=== PATIENT | female | born 1940 | race Caucasian/White ===

== ENCOUNTER → 2020-04-09 15:37 | Outpatient (BNVA) | payer MEDICARE, OTHER, SELFPAY | PROVIDERS: Family Provider Internal Medicine; PCP Internal Medicine; Visit Provider Internal Medicine | DX: E11.9 Type 2 diabetes mellitus without complications (principal); B19.20 Unspecified viral hepatitis C without hepatic coma; E05.00 Thyrotoxicosis with diffuse goiter without thyrotoxic crisis or storm; K90.9 Intestinal malabsorption, unspecified; I48.0 Paroxysmal atrial fibrillation; E83.10 Disorder of iron metabolism, unspecified | CPT/HCPCS: 82105; 82607; 82746; 83550; 84443; 85025 ==

== ENCOUNTER 2020-04-14 09:08 | Outpatient (RCR) | payer MEDICARE, OTHER, SELFPAY ==
[2020-04-14] MEDS: ferric carboxy (IVPB) 750 MG in sodium chloride 0.9% (100 ml) 100 ML 345 MG IV (09:49)
[2020-04-14 09:52] VITALS: BP 128/69; PULSE 64; RESP 18; TEMP 36.4; O2SAT 100
[2020-04-21 09:44] VITALS: BP 111/77; PULSE 64; RESP 18; TEMP 36.6; O2SAT 99
[2020-04-21] MEDS: ferric carboxy (IVPB) 750 MG in sodium chloride 0.9% (100 ml) 100 ML 345 MG IV (09:59)
== END 2020-05-12 23:59 | disposition home or self-care (01) ==
LOC: OPS 09:08
PROVIDERS: Family Provider Internal Medicine; PCP Internal Medicine; Visit Provider Internal Medicine
DX: D50.9 Iron deficiency anemia, unspecified (principal)
CPT/HCPCS: 96365; J1439

== ENCOUNTER → 2020-10-09 16:17 | Outpatient (BNVA) | payer MEDICARE, OTHER, SELFPAY | PROVIDERS: Family Provider Internal Medicine; PCP Internal Medicine; Visit Provider Internal Medicine | DX: R94.6 Abnormal results of thyroid function studies (principal); K90.9 Intestinal malabsorption, unspecified; I48.0 Paroxysmal atrial fibrillation; E05.00 Thyrotoxicosis with diffuse goiter without thyrotoxic crisis or storm | CPT/HCPCS: 80053; 83550; 84439; 84443; 84481; 85025 ==

== ENCOUNTER → 2020-12-02 10:52 | Day surgery (SDC) | payer MEDICARE, OTHER, SELFPAY ==
[2020-12-02 11:34] VITALS: BP 144/62; PULSE 82; RESP 20; TEMP 36.1; O2SAT 100
[2020-12-02] MEDS: ferric carboxy (IVPB) 750 MG in sodium chloride 0.9% (100 ml) 100 ML 220 MG IV (11:35)
== END ==
PROVIDERS: PCP Internal Medicine; Visit Provider Internal Medicine
DX: D50.9 Iron deficiency anemia, unspecified (principal)
CPT/HCPCS: 96365; J1439

== ENCOUNTER → 2020-12-09 10:51 | Day surgery (SDC) | payer MEDICARE, OTHER, SELFPAY ==
[2020-12-09 11:12] VITALS: BP 127/68; PULSE 71; RESP 18; TEMP 37; O2SAT 100; BMI 25.6
[2020-12-09] MEDS: ferric carboxy (IVPB) 750 MG in sodium chloride 0.9% (100 ml) 100 ML 345 MG IV (11:23)
== END ==
PROVIDERS: PCP Internal Medicine; Visit Provider Internal Medicine
DX: D50.9 Iron deficiency anemia, unspecified (principal)
CPT/HCPCS: 96365; J1439

== ENCOUNTER → 2021-04-08 15:25 | Outpatient (BNVA) | payer MEDICARE, OTHER, SELFPAY | PROVIDERS: PCP Internal Medicine; Visit Provider Internal Medicine | DX: I48.0 Paroxysmal atrial fibrillation (principal); E05.00 Thyrotoxicosis with diffuse goiter without thyrotoxic crisis or storm; K90.9 Intestinal malabsorption, unspecified | CPT/HCPCS: 83550 ==

== ENCOUNTER → 2021-05-12 10:59 | Day surgery (SDC) | payer MEDICARE, SELFPAY ==
[2021-05-12 11:20] VITALS: BP 141/68; PULSE 65; RESP 18; TEMP 36.5; O2SAT 98; BMI 24.3
[2021-05-12] MEDS: ferric carboxy (IVPB) 750 MG in sodium chloride 0.9% (100 ml) 100 ML 345 MG IV (11:32)
== END ==
PROVIDERS: PCP Internal Medicine; Visit Provider Internal Medicine
DX: K90.9 Intestinal malabsorption, unspecified (principal)
CPT/HCPCS: 96365; J1439

== ENCOUNTER 2021-06-02 10:59 | Outpatient (RCR) | payer MEDICARE, OTHER, SELFPAY ==
[2021-05-19 11:33] VITALS: BP 137/62; PULSE 67; RESP 18; TEMP 36.7; O2SAT 100
[2021-05-19 11:43] VITALS: BMI 24.1
[2021-05-19] MEDS: ferric carboxy (IVPB) 750 MG in sodium chloride 0.9% (100 ml) 100 ML 345 MG IV (12:00)
[2021-05-26 11:12] VITALS: BP 102/39; PULSE 66; RESP 18; TEMP 36.6; O2SAT 98
[2021-05-26] MEDS: ferric carboxy (IVPB) 750 MG in sodium chloride 0.9% (100 ml) 100 ML 345 MG IV (11:22)
[2021-06-02 11:10] VITALS: BP 130/71; PULSE 62; RESP 18; TEMP 35.9; O2SAT 99
[2021-06-02] MEDS: ferric carboxy (IVPB) 750 MG in sodium chloride 0.9% (100 ml) 100 ML 345 MG IV (11:20)
== END 2021-06-11 23:59 | disposition home or self-care (01) ==
LOC: GILAB 10:59
PROVIDERS: PCP Internal Medicine; Visit Provider Internal Medicine
DX: K90.9 Intestinal malabsorption, unspecified (principal)
CPT/HCPCS: 96365; J1439

== ENCOUNTER → 2021-06-09 10:12 | Outpatient (BNVA) | payer MEDICARE, OTHER, SELFPAY | PROVIDERS: PCP Internal Medicine; Visit Provider Internal Medicine | DX: K90.9 Intestinal malabsorption, unspecified (principal) | CPT/HCPCS: 83550 ==

== ENCOUNTER 2021-07-03 14:33 | Inpatient (IN) | payer MEDICARE, OTHER, SELFPAY ==
[2021-07-03] VITALS (10 sets, daily range): BP systolic 102–161; BP diastolic 62–110; PULSE 82–100; RESP 15–20; TEMP 36.6–36.7; O2SAT 90–100; BMI 21.4; BMI 22.1
--- NOTE | 2021-07-03 14:54 | XRR_ITS ---
PROCEDURE INFORMATION: Exam: XR Right Hip Exam date and time: 07/03/2021 2:54 PM Age: 80 years old Clinical indication: Pain and injury or trauma; Fall; Blunt trauma (contusions or hematomas); Hip pain; Right hip; Additional info: Fall with hip pain TECHNIQUE: Imaging protocol: XR Right hip. Views: 1 view hip with pelvis when performed. COMPARISON: No relevant prior studies available. FINDINGS: Bones/joints: Right hip basicervical fracture with impaction and angulation. Soft tissues: Unremarkable. XR/XR hip RT 2-3V wo/w pel* [id number] IMPRESSION: Right hip basicervical fracture with impaction and angulation. Radiation Dose CTDIVOL = (mGy): DLP = (mGy-cm)
--- NOTE | 2021-07-03 14:59 | W.ED.FALL ---
Documented by User: BEATRIZ Prather 07/03/21 17:00 HPI - Fall General: Chief Complaint: Fall Stated Complaint: POSSIBLE R HIP FX Time Seen by Provider: 07/03/21 14:54 History of Present Illness: HPI Narrative: Patient is a 80-year-old female that comes to the ED via ambulance after having a fall. She is reporting some right hip pain. Fall occurred last night. Patient says she was walking in her house and tripped over a rug. She landed on her right side. After fall she was having right hip pain and was unable to bear weight on right leg so she decided to come to the ED to get evaluated. She rates her pain currently a 9 out of 10. Denies any head trauma, loss of consciousness or any neck pain. Denies any neurological symptoms as well. Associated symptoms-after fall: Denies abdominal pain, chest pain, headache(s), hematuria or neck pain Review of Systems Const: Denies: fever(s), chills or fatigue Eyes: Denies: change in vision or eye discomfort ENMT: Denies: throat pain, odynophagia, nasal discharge or nasal congestion Card: Denies: chest pain, palpitations, edema, swelling of feet/ankles, dyspnea on exertion or orthopnea Resp: Denies: dyspnea, productive cough or non-productive cough GI: Denies: abdominal pain, nausea, vomiting, diarrhea, constipation or hematochezia : Denies: flank pain, dysuria or hematuria Musc: Reports: joint pain (Right hip) and limited range of motion (Right leg due to her right hip pain.); Denies: neck pain, back pain or extremity swelling Skin/Breast: Denies: rash or new lesions Neuro: Denies: headache(s), numbness in extremities or weakness in extremities PFS ED PFSH: Medical History Graves' disease Iron malabsorption Paroxysmal A-fib Surgical History H/O kyphoplasty History of tonsillectomy Family History Mother Cancer Sister Cancer Other Heart disease Social History Alcohol intake: current Adopted: No service: No History of recent travel: No Current gender identity: Female Physical Exam Const: COMMON NORMALS: patient oriented x3, healthy appearing and alert GENERAL APPEARANCE: cooperative and comfortable HENMT: COMMON NORMALS: normocephalic HEAD & SCALP: normocephalic MOUTH: Normal oral and palatal mucosa present THROAT: posterior oropharynx normal and uvula midline Eye: COMMON NORMALS: Equal, round and reactive pupils present and EOMs intact bilaterally PUPIL: Yes Equal, round and reactive pupils present Neck/C-Spine: COMMON NORMALS: supple GENERAL: Yes normal visual inspection Resp: COMMON NORMALS: normal respiratory effort, No retractions, No use of accessory muscles and clear to auscultation bilaterally AUSCULTATION: clear to auscultation bilaterally Cardio: COMMON NORMALS: regular rate, regular rhythm, S1 normal heart sound present, S2 normal heart sound present, No gallops present (Cardio), No clicks present (Cardio), No murmurs present (Cardio) and Peripheral pulses 2+ throughout RATE: regular rate RHYTHM: regular rhythm HEART SOUNDS: S1 normal heart sound present and S2 normal heart sound present PERIPHERAL PULSES: Peripheral pulses 2+ throughout GI: COMMON NORMALS: Normal to inspection, nondistended, normoactive bowel sounds present, Soft to palpation, non-tender and no masses PALPATION: Yes Soft to palpation : COMMON NORMALS: Yes no CVA tenderness BLADDER/KIDNEY EXAM: Yes no CVA tenderness Back/Pelvis: COMMON NORMALS: no CVA tenderness Extremity: COMMON NORMALS: normal to inspection NARRATIVE EXTREMITY EXAM: Right lower extremity?shortened and externally rotated. Neurovascular intact. unable to obtain assess range of motion due to right hip pain Neuro: COMMON NORMALS: patient oriented x3, CN's II-XII intact bilaterally, moves all extremities, no focal motor deficits and no sensory deficits noted SENSORIUM/ORIENTATION: Yes alert SENSORY EXAM: Yes extremities (intact light touch) MOTOR EXAM: 5/5 motor strength present throughout (all other extremities normal-unable to test right leg due to pain) Skin: GENERAL SKIN EXAM: dry skin Course Consultations: Consultation #1: I contacted Dr. Guzman the e business specialist supervisor contingents. I told about patient case and x-ray of right hip findings. He told me to have patient admitted to hospital service. Since she is on a blood thinner he thought he would probably do a surgery on Tuesday. Vital Signs: Vital signs: Vital Signs Temperature 98.0 F 07/06/21 20:04 Pulse Rate 91 07/06/21 20:04 Respiratory Rate 16 07/06/21 20:04 Blood Pressure 165/74 07/06/21 20:04 Pulse Oximetry 95 07/06/21 20:04 MDM - Fall MDM Narrative: Medical decision making narrative: A 80-year-old female comes to the ED via EMS with right hip pain after having a fall at home. Denies any head trauma or loss of consciousness. Patient is on apixaban for paroxysmal A. fib. Vitals are stable. Exam shows right lower extremity that appears shortened and externally rotated. Neurovascular intact distally. The rest of the exam and neurological exam is normal. X-ray of right hip shows a basicervical hip fracture with impaction and angulation. Ct head pending. I contacted Dr. Guzman to discuss findings. He recommended having patient admitted to the hospital service and she will need to stop her apixaban. He thought that they would probably do surgery on Tuesday. I talked with Dr. Alcocer and told him about patient case and Dr. Guzman's plan to have patient admitted to hospital service. Dr. Alcocer talked with hospitalist and placed admitting orders. Lab Data: Labs: Lab Results 07/03/21 07/03/21 07/03/21 14:40 14:40 14:40 WBC 11.1 10^3/uL H 10 ^3/uL (4.0-10.0) RBC 3.42 10^6/uL L 10 ^6/uL (4.1-5.3) Hgb 11.0 g/dL L g/dL (11.5-15.3) Hct 34.7 % L % (37.0-47.0) MCV 101.5 fl H fl (81-99) MCH 32.2 pg pg (28.0-34.0) MCHC 31.7 g/dL g/dL (30.0-36.0) RDW 20.8 % H % (12.1-15.1) Plt Count 269 10^3/cmm 10^3 /cmm (130-400) MPV 9.9 fL fL (7.4-10.4) Neut % (Auto) 84.9 % % Lymph % (Auto) 6.5 % % [place] % (Auto) 7.7 % % Eos % (Auto) 0.0 % % Baso % (Auto) 0.2 % % Neut # (Auto) 9.44 10^3/uL H 10 ^3/uL (1.8-7.7) Lymph # (Auto) 0.7 10^3/uL L 10^ 3/uL (0.8-4.8) [place] # (Auto) 0.9 10^3/uL 10^3/ uL (0.2-0.9) Eos # (Auto) 0.0 10^3/uL 10^3/ uL (0.0-0.8) Baso # (Auto) 0.0 10^3/uL 10^3/ uL (0.0-0.1) Nucleated RBC % (a uto) 0 % % Nucleated RBCs # 0.0 /100WBC /100W BC Sodium 139 mmol/L mmol/L (136-145) Potassium 3.6 mmol/L mmol/L (3.5-5.1) Chloride 100 mmol/L mmol/L (98-107) Carbon Dioxide 21 mmol/L L mmol/ L (22-29) Anion Gap 21.6 H (5-19) BUN 13 mg/dL mg/dL (8-23) Creatinine 0.6 mg/dL mg/dL (0.5-0.9) GFR Calculation Not Reportable Glucose 166 mg/dL H mg/dL (65-115) Calculated Osmolal ity 292 mOsm/kg mOsm/ kg (285-295) Calcium 8.7 mg/dL mg/dL (8.5-10.5) Creatine Kinase 629 U/L H* U/L (26-192) Troponin T Baselin e NT-Pro-B Natriuret Pep 744 pg/mL H pg/mL (0-450) Vitamin B12 Folate 07/03/21 07/03/21 07/03/21 14:40 14:40 14:40 WBC RBC Hgb Hct MCV MCH MCHC RDW Plt Count MPV Neut % (Auto) Lymph % (Auto) [place] % (Auto) Eos % (Auto) Baso % (Auto) Neut # (Auto) Lymph # (Auto) [place] # (Auto) Eos # (Auto) Baso # (Auto) Nucleated RBC % (a uto) Nucleated RBCs # Sodium Potassium Chloride Carbon Dioxide Anion Gap BUN Creatinine GFR Calculation Glucose Calculated Osmolal ity Calcium Creatine Kinase Troponin T Baselin e 30 ng/L H ng/L (0-10) NT-Pro-B Natriuret Pep Vitamin B12 195 pg/mL L pg/mL (232-1245) Folate 11.6 ng/mL ng/mL (4.8-37.3) Imaging Data^: Xray Ortho: Attestation: I personally reviewed and interpreted this imaging study as follows: Radiologist's impression: [employer] [address] XRay Report Signed Patient: Anu Rivera Unit #: [id number] : 1940 Age/Sex: 80 / F ADM Date: 07/03/21 Loc: ER Room/Bed: Attending Dr: Ordering Provider/Ordering MD: Jose Yates Date of Service: 07/03/21 Procedure(s): XR hip RT 2-3V wo/w pel* [id number] Accession Number(s): [id number] Report Number: [id number] PROCEDURE INFORMATION: Exam: XR Right Hip Exam date and time: 07/03/2021 2:54 PM Age: 80 years old Clinical indication: Pain and injury or trauma; Fall; Blunt trauma (contusions or hematomas); Hip pain; Right hip; Additional info: Fall with hip pain TECHNIQUE: Imaging protocol: XR Right hip. Views: 1 view hip with pelvis when performed. COMPARISON: No relevant prior studies available. FINDINGS: Bones/joints: Right hip basicervical fracture with impaction and angulation. Soft tissues: Unremarkable. XR/XR hip RT 2-3V wo/w pel* [id number] IMPRESSION: Right hip basicervical fracture with impaction and angulation. Radiation Dose CTDIVOL = (mGy): DLP = (mGy-cm) Dictated By: Gagandeep Nguyen MD Signed By: Gagandeep Nguyen MD Signed Date/Time: 07/03/21 1543 DD/ 1454 Discharge Plan Discharge Patient Disposition: Admitted As Inpatient Admit Provider: Robbin Walls Clinical Impression: Hip fracture, right Qualifiers: Encounter type: initial encounter Fracture type: closed Qualified Code(s): S72.001A - Fracture of unspecified part of neck of right femur, initial encounter for closed fracture Condition: Stable Coding Level of Care Code ED Button Cutting Machine Operator for Chg Fwd Exam Comprehensive Documented by User: Boyd Alcocer MD 07/06/21 21:28 HPI - Fall General: Chief Complaint: Fall Stated Complaint: POSSIBLE R HIP FX Time Seen by Provider: 07/03/21 14:54 PFSH ED PFSH: Medical History Graves' disease Iron malabsorption Paroxysmal A-fib Surgical History H/O kyphoplasty History of tonsillectomy Family History Mother Cancer Sister Cancer Other Heart disease Social History Alcohol intake: current Adopted: No service: No History of recent travel: No Current gender identity: Female Course Vital Signs: Vital signs: Vital Signs Temperature 98.0 F 07/06/21 20:04 Pulse Rate 91 07/06/21 20:04 Respiratory Rate 16 07/06/21 20:04 Blood Pressure 165/74 07/06/21 20:04 Pulse Oximetry 95 07/06/21 20:04 MDM - Fall MDM Narrative: Medical decision making narrative: I discussed the case with BEATRIZ Prather. Note, imaging, and labs reviewed. Will require admission for hip fracture on anticoagulation. Hospitalist contacted. Boyd Alcocer MD Emergency Medicine Lab Data: Labs: Lab Results 07/03/21 07/03/21 07/03/21 14:40 14:40 14:40 WBC 11.1 10^3/uL H 10 ^3/uL (4.0-10.0) RBC 3.42 10^6/uL L 10 ^6/uL (4.1-5.3) Hgb 11.0 g/dL L g/dL (11.5-15.3) Hct 34.7 % L % (37.0-47.0) MCV 101.5 fl H fl (81-99) MCH 32.2 pg pg (28.0-34.0) MCHC 31.7 g/dL g/dL (30.0-36.0) RDW 20.8 % H % (12.1-15.1) Plt Count 269 10^3/cmm 10^3 /cmm (130-400) MPV 9.9 fL fL (7.4-10.4) Neut % (Auto) 84.9 % % Lymph % (Auto) 6.5 % % [place] % (Auto) 7.7 % % Eos % (Auto) 0.0 % % Baso % (Auto) 0.2 % % Neut # (Auto) 9.44 10^3/uL H 10 ^3/uL (1.8-7.7) Lymph # (Auto) 0.7 10^3/uL L 10^ 3/uL (0.8-4.8) [place] # (Auto) 0.9 10^3/uL 10^3/ uL (0.2-0.9) Eos # (Auto) 0.0 10^3/uL 10^3/ uL (0.0-0.8) Baso # (Auto) 0.0 10^3/uL 10^3/ uL (0.0-0.1) Nucleated RBC % (a uto) 0 % % Nucleated RBCs # 0.0 /100WBC /100W BC Sodium 139 mmol/L mmol/L (136-145) Potassium 3.6 mmol/L mmol/L (3.5-5.1) Chloride 100 mmol/L mmol/L (98-107) Carbon Dioxide 21 mmol/L L mmol/ L (22-29) Anion Gap 21.6 H (5-19) BUN 13 mg/dL mg/dL (8-23) Creatinine 0.6 mg/dL mg/dL (0.5-0.9) GFR Calculation Not Reportable Glucose 166 mg/dL H mg/dL (65-115) Calculated Osmolal ity 292 mOsm/kg mOsm/ kg (285-295) Calcium 8.7 mg/dL mg/dL (8.5-10.5) Creatine Kinase 629 U/L H* U/L (26-192) Troponin T Baselin e NT-Pro-B Natriuret Pep 744 pg/mL H pg/mL (0-450) Vitamin B12 Folate 07/03/21 07/03/21 07/03/21 14:40 14:40 14:40 WBC RBC Hgb Hct MCV MCH MCHC RDW Plt Count MPV Neut % (Auto) Lymph % (Auto) [place] % (Auto) Eos % (Auto) Baso % (Auto) Neut # (Auto) Lymph # (Auto) [place] # (Auto) Eos # (Auto) Baso # (Auto) Nucleated RBC % (a uto) Nucleated RBCs # Sodium Potassium Chloride Carbon Dioxide Anion Gap BUN Creatinine GFR Calculation Glucose Calculated Osmolal ity Calcium Creatine Kinase Troponin T Baselin e 30 ng/L H ng/L (0-10) NT-Pro-B Natriuret Pep Vitamin B12 195 pg/mL L pg/mL (232-1245) Folate 11.6 ng/mL ng/mL (4.8-37.3) Discharge Plan Discharge Patient Disposition: Admitted As Inpatient Admit Provider: Robbin Walls Clinical Impression: Hip fracture, right Qualifiers: Encounter type: initial encounter Fracture type: closed Qualified Code(s): S72.001A - Fracture of unspecified part of neck of right femur, initial encounter for closed fracture Condition: Stable Coding Level of Care Code ED Button Cutting Machine Operator for Alice Fwd Exam Comprehensive
[2021-07-03] MEDS: ondansetron 2 mg/ML SDV 2 mL 4 MG IVP (15:35)
[2021-07-03] MEDS: morphine 4 mg/mL SDV 1 mL IVP ×2 (15:36→17:17)
--- NOTE | 2021-07-03 16:38 | CTR_ITS ---
PROCEDURE INFORMATION: Exam: CT Head Without Contrast Exam date and time: 07/03/2021 4:38 PM Age: 80 years old Clinical indication: Injury or trauma; Fall; Blunt trauma (contusions or hematomas); Consciousness not specified; Patient HX: Fell last night TECHNIQUE: Imaging protocol: Computed tomography of the head without contrast. Radiation optimization: All CT scans at this facility use at least one of these dose optimization techniques: automated exposure control; mA and/or kV adjustment per patient size (includes targeted exams where dose is matched to clinical indication); or iterative reconstruction. COMPARISON: No relevant prior studies available. RADIATION DOSE METRICS: Total DLP (mGy-cm): 1689.32 FINDINGS: Brain: Moderate diffuse cortical volume loss. Moderate hypodensities in supratentorial periventricular and subcortical white matter, consistent with microangiopathy. No intracranial hemorrhage. Cerebral ventricles: Cavum septum pellucidum, a congenital variant. No hydrocephalus. Paranasal sinuses: Visualized sinuses are unremarkable. No fluid levels. Mastoid air cells: Visualized mastoid air cells are well aerated. Orbital cavity: Prior cataract surgery. Vasculature: No hyperdense artery. Bones/joints: Unremarkable. No acute fracture. Soft tissues: Unremarkable. CT/CT head wo con* [id number] IMPRESSION: 1. No acute intracranial abnormality. Radiation Dose CTDIVOL = (mGy): DLP = 1689.32 (mGy-cm)
--- NOTE | 2021-07-03 16:49 | CTR_ITS ---
PROCEDURE INFORMATION: Exam: CT Cervical Spine Without Contrast Exam date and time: 07/03/2021 4:49 PM Age: 80 years old Clinical indication: Injury or trauma; Fall; Blunt trauma; Patient HX: Fell last night TECHNIQUE: Imaging protocol: Computed tomography images of the cervical spine without contrast. Radiation optimization: All CT scans at this facility use at least one of these dose optimization techniques: automated exposure control; mA and/or kV adjustment per patient size (includes targeted exams where dose is matched to clinical indication); or iterative reconstruction. COMPARISON: CT head wo con* [id number] 07/03/2021 4:54 PM RADIATION DOSE METRICS: Total DLP (mGy-cm): 345.76 FINDINGS: Bones/joints: The vertebral body alignment and stature is intact. No fracture or subluxation. The facets are intact with mild degenerative changes. Mild leftward cervical curvature. Discs/Spinal canal/Neural foramina: No significant disc protrusion. No severe spinal canal stenosis. No significant neural foraminal narrowing. Thyroid: Multiple thyroid nodules, the largest on the left measuring 1.4 cm. No ultrasound follow-up is recommended based on size and age criteria. Lungs: Lung apices are normal. Soft tissues: Unremarkable. CT/CT cervical spin wo con* [id number] IMPRESSION: 1. No fracture or acute finding. COMMENTS: Consistent with the [employer]'s Incidental Findings Committee white paper (J Am Rafal Radiol 2015): In patients aged 35 years and older with an incidental thyroid nodule equal to or greater than 1.[address], MRI or extrathyroidal US, further evaluation with dedicated thyroid US is recommended for patients with normal life expectancy and without comorbidities. For smaller nodules without suspicious features, no further evaluation or follow up is recommended. Radiation Dose CTDIVOL = (mGy): DLP = 345.76 (mGy-cm)
[2021-07-03 17:22] LABS: Anion Gap 21.6 (5-19); Blood Urea Nitrogen 13 mg/dL (8-23); Calcium 8.7 mg/dL (8.5-10.5); Carbon Dioxide 21 mmol/L (22-29); Chloride 100 mmol/L (98-107); Glucose 166 mg/dL (65-115); Osmolality Calculated 292 mOsm/kg (285-295); Potassium 3.6 mmol/L (3.5-5.1); Sodium 139 mmol/L (136-145)
--- NOTE | 2021-07-03 17:28 | P.HP_ITS ---
Providers/Chief Complaint Primary Care Provider: Amrit Ivey MD Chief Complaint: POSSIBLE R HIP FX History of Present Illness Anu Rivera is a 80 year old female with a past medical history of paroxysmal atrial fibrillation, Graves' disease on methimazole, who presents to [facility] for a fall. Patient tells me that yesterday at about 8 PM, she slipped on the rug, and fell on her right side, denies any head trauma, denies any loss of consciousness, denies any preceding palpitations, lightheadedness, syncope, presyncope, shortness of breath, she tells me that she laid on the floor for a some time, she is unsure, she crawled on the floor, until her came in put her into bed. This morning she got up and had right hip pain, and was unable to bear weight or stand, that she presented to the emergency room. Denies any Covid exposure, no fevers, cough, has had Covid vaccinations. In the emergency room she was found to have a right hip fracture, on Eliquis, ER physician has spoken to orthopedic team who advised to admit, hold blood thinner, plan for surgical intervention in the next 24 to 48 hours hospitalist team was called for admission. Review of Systems Const: Denies: fever(s), chills, fatigue or malaise Eyes: Denies: change in vision or blurry vision ENMT: Denies: nasal congestion Card: Denies: chest pain or palpitations Resp: Denies: dyspnea, productive cough, non-productive cough or wheezing GI: Denies: abdominal pain, nausea, vomiting, hematemesis, diarrhea, constipation, hematochezia or melena : Denies: flank pain, dysuria or urinary frequency Musc: Reports: extremity pain and joint pain; Denies: neck pain or back pain Skin/Breast: Denies: rash Neuro: Denies: headache(s), dizziness or vertigo Endo: Denies: polyuria or polydipsia Medications/Allergies Home Medications Medication Instructions Recorded Confirmed Last Taken Type methimazole 5 mg tablet 2.5 mg PO DAILY tab 04/09/20 06/09/21 05/26/21 History ferric carboxymaltose 750 mg IVP Q7D #15 ml 04/10/20 06/09/21 05/26/21 Rx acetaminophen 500 mg tablet 1,000 mg PO BID PRN tab 05/12/20 07/03/21 12/01/20 History apixaban 5 mg tablet 5 mg PO BID #60 tab 12/01/20 07/03/21 07/02/21 Rx metoprolol succinate 25 mg capsule 25 mg PO DAILY #30 each 02/18/21 06/09/21 05/26/21 Rx sprinkle, ext. release 24 hr vitamins A,C,U-izle-ltqebm 14,320 1 cap PO BID 05/12/21 06/09/21 05/26/21 History unit-226 mg-200 unit capsule Allergies Allergy/AdvReac Type Severity Reaction Status Date / Time No Known Allergies Allergy Verified 05/26/21 11:10 PFSH Acute PFSH: Medical History Graves' disease Iron malabsorption Paroxysmal A-fib Surgical History H/O kyphoplasty History of tonsillectomy Family History Mother Cancer Sister Cancer Other Heart disease Social History Alcohol intake: current Adopted: No service: No History of recent travel: No Current gender identity: Female Vitals/I&O/Wt Last Vital Signs Temp 97.9 F 07/03/21 14:42 Pulse 90 07/03/21 17:00 Resp 20 H 07/03/21 17:17 BP 149/90 07/03/21 17:00 Pulse Ox 100 07/03/21 17:17 Weight last 48 hrs Weight 56.699 kg Physical Exam Const: COMMON NORMALS: no acute distress and patient oriented x3 GENERAL APPEARANCE: cooperative and comfortable HENMT: COMMON NORMALS: normocephalic HEAD & SCALP: normocephalic Eye: COMMON NORMALS: Equal, round and reactive pupils present and EOMs intact bilaterally GENERAL EYE: appearance normal, both eyes and all related structures PUPIL: Yes Equal, round and reactive pupils present Neck/C-Spine: COMMON NORMALS: full ROM and no lymphadenopathy Lymph: LYMPHATIC: no lymphadenopathy noted Resp: COMMON NORMALS: normal respiratory effort, No retractions, No use of accessory muscles and clear to auscultation bilaterally AUSCULTATION: clear to auscultation bilaterally Cardio: COMMON NORMALS: no JVD, regular rate, regular rhythm, S1 normal heart sound present, S2 normal heart sound present, No gallops present (Cardio), No clicks present (Cardio) and No murmurs present (Cardio) RATE: regular rate RHYTHM: regular rhythm HEART SOUNDS: S1 normal heart sound present and S2 normal heart sound present GI: COMMON NORMALS: Normal to inspection, nondistended, normoactive bowel sounds present, Soft to palpation, non-tender and No hepatosplenomegaly present PALPATION: Yes Soft to palpation and Yes No hepatosplenomegaly present Extremity: COMMON NORMALS: normal to inspection, full ROM and no pedal edema NARRATIVE EXTREMITY EXAM: Right lower extremity, slightly externally rotated, and in a binder Neuro: COMMON NORMALS: patient oriented x3, CN's II-XII intact bilaterally, moves all extremities and no focal motor deficits Psych: COMMON NORMALS: mental status grossly normal, Normal thought process present and cooperative THOUGHT PROCESS: Normal thought process present Data : 07/03/21 14:40 A&P Assessment and plan (1) Hip fracture, right: -Status post mechanical fall -Right hip basicervical fracture with impaction and angulation. -CT of the head, CT cervical spine pending -We will do EKG, serial troponins, BMP -UA pending -Pain control Dilaudid -Bedrest, after surgery PT OT -Orthopedic service on consult -DNR/DNI -Heparin for DVT prophylaxis Paroxysmal A. fib, telemetry monitoring, Eliquis on hold, continue metoprolol Graves' disease, continue methimazole, check TSH Fall, prolonged immobility, CPK monitor creatinine, gentle IV hydration Status: Acute Qualifiers: Encounter type: initial encounter Fracture type: closed Qualified Code(s): S72.001A - Fracture of unspecified part of neck of right femur, initial encounter for closed fracture (2) Paroxysmal A-fib: Status: Acute (3) Graves' disease: Status: Acute (4) Iron malabsorption: Status: Acute Attestations Medical Necessity Statement*: Patient requires hospitalization, for hip fracture, inpatient, greater than 2 midnights Coding Level of Care Code Acute Topper Press Operator Automatic for [facility] Diagnoses Hip fracture, right S72.001A Encounter type: initial encounter Fracture type: closed Paroxysmal A-fib I48.0 Graves' disease E05.00 Iron malabsorption K90.9
[2021-07-03 17:42] LABS: Basophils % 0.2 %; Hematocrit 34.7 % (37.0-47.0); Lymphocytes # 0.7 10^3/uL (0.8-4.8); Lymphocytes % 6.5 %; Mean Corpuscular HGB Conc 31.7 g/dL (30.0-36.0); Mean Corpuscular Hemoglobin 32.2 pg (28.0-34.0); Mean Corpuscular Volume 101.5 fl (81-99); Mean Platelet Volume 9.9 fL (7.4-10.4); Monocytes # 0.9 10^3/uL (0.2-0.9); Monocytes % 7.7 %; Neutrophils # 9.44 10^3/uL (1.8-7.7); Neutrophils % 84.9 %; Nucleated Red Blood Cells % 0 %; Platelet Count 269 10^3/cmm (130-400); Red Blood Count 3.42 10^6/uL (4.1-5.3); Red Cell Distribution Width 20.8 % (12.1-15.1); White Blood Count 11.1 10^3/uL (4.0-10.0)
[2021-07-03 17:50] LABS: Urine Appearance Hazy (CLEAR); Urine Color Yellow (Yellow)
[2021-07-03 17:51] LABS: Add Urine Culture? No; Add Urine Microscopic? YES; Bacteria Urine TRACE /hpf; Bilirubin Urine Neg (Negative); Blood Urine Neg (Negative); Glucose Urine UA 1+ (Normal); Ketones Urine 2+ (Negative); Leukocyte Esterase Urine Negative (Negative); Mucus Urine TRACE /hpf; Nitrate Urine Negative (Negative); Protein Urine Neg (Negative); RBC Urine 0-4 /hpf (0-2); Specific Gravity, Urine 1.025 (1.005-1.030); Squamous Epithelial Cell Urine 0-4 /hpf (0-5); Urobilinogen Urine Norm (Negative); WBC Urine 0-4 /hpf (0-5); pH Urine 5 (5-7)
[2021-07-03 18:01] LABS: NT Pro B Type Natriuretic Pept 744 pg/mL (0-450)
[2021-07-03 18:18] LABS: Creatine Phosphokinase 629 U/L (26-192)
--- NOTE | 2021-07-03 18:22 | PC.NURSE ---
Dr. Walls notified of critical CK 629 called to this nurse.
[2021-07-03 18:24] LABS: Troponin(5th) Baseline 30 ng/L (0-10)
--- NOTE | 2021-07-03 20:17 | ECG_ITS ---
[facility] Test Date: 2021-07-03 Pat Name: Anu Rivera Department: Room: 262 Gender: Female Lidar Technician: : 1940 Requested By: Robbin Walls Order Number: [id number] Bebeto MD: Gurjit Agrawal M.D. Measurements Intervals Elizabeth Rate: 83 P: 21 WY: 128 QRS: 29 QRSD: 78 T: 28 QT: 366 QTc: 432 Interpretive Statements SINUS RHYTHM Compared to ECG 12/09/2017 09:03:10 Atrial fibrillation no longer present T-wave abnormality no longer present Electronically Signed On 07-03-2021 22:47:28 CDT by Gurjit Agrawal M.D. [id number]
[2021-07-03] MEDS: HYDROmorphone 1 mg/mL INJ 1 mL IVP (20:26)
[2021-07-03] MEDS: famotidine 20 mg/2 mL INJ IVP (20:56)
[2021-07-03] MEDS: sodium chloride 0.9% 1,000 ML 75 ML IV (20:56)
[2021-07-03] MEDS: heparin 5,000 unit/mL INJ 1 mL 5000 UNIT SUBCUT (20:56)
--- NOTE | 2021-07-03 21:00 | PC.NURSE ---
Admit Note Patient admitted to [MS room 262-1] from [er] via [stretcher ]. Covering service notified. Patient presents with [right hip fx from glf ]. Orders reviewed & will continue to monitor. Patient and/or surgical device sales representative oriented to environment, equipment, and informed of the following as found in the admission booklet: patient rights & responsibilities, visitor policy, hand and respiratory hygiene practice. Other education includes: [safety and bedrest]. Patient and/or surgical device sales representative [verbalized understanding ].
[2021-07-03 21:45] LABS: Troponin 5 2HR 33.64 ng/L (0-10)
[2021-07-03 21:51] LABS: Thyroid Stimulating Hormone 2.02 uIU/mL (0.27-4.20)
--- NOTE | 2021-07-03 23:36 | ECG_ITS ---
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 Measurements Intervals [place] Rate: 87 P: 28 NC: 146 QRS: 26 QRSD: 77 T: 30 QT: 367 QTc: 443 Interpretive Statements SINUS RHYTHM Compared to ECG 07/03/2021 22:22:03 No significant changes Electronically Signed On 07-05-2021 18:38:18 CDT by Keila Queen M.D. [id number]
[2021-07-04] VITALS (12 sets, daily range): BP systolic 100–125; BP diastolic 55–72; PULSE 77–83; RESP 16–18; TEMP 36.5–37.3; O2SAT 93–97
[2021-07-04] MEDS: sodium chloride 0.9% 1,000 ML 75 ML IV ×2 (02:27→14:42)
[2021-07-04 06:46] LABS: Basophils % 0.2 %; Hematocrit 28.4 % (37.0-47.0); Hemoglobin 8.8 g/dL (11.5-15.3); Lymphocytes # 0.9 10^3/uL (0.8-4.8); Lymphocytes % 13.5 %; Mean Corpuscular Hemoglobin 31.7 pg (28.0-34.0); Mean Corpuscular Volume 102.2 fl (81-99); Mean Platelet Volume 9.7 fL (7.4-10.4); Monocytes # 0.7 10^3/uL (0.2-0.9); Monocytes % 10.7 %; Neutrophils # 4.93 10^3/uL (1.8-7.7); Neutrophils % 75.3 %; Nucleated Red Blood Cells % 0 %; Platelet Count 201 10^3/cmm (130-400); Red Blood Count 2.78 10^6/uL (4.1-5.3); Red Cell Distribution Width 20.3 % (12.1-15.1); White Blood Count 6.5 10^3/uL (4.0-10.0)
[2021-07-04 07:02] LABS: INR 1.17 (0.8-1.2)
[2021-07-04 07:17] LABS: Alanine Aminotransferase 11 U/L (0-33); Albumin Level 3.5 g/dL (3.5-5.2); Alkaline Phosphatase 100 IU/L (35-105); Anion Gap 12.8 (5-19); Aspartate Amino Transferase 15 U/L (0-32); Blood Urea Nitrogen 18 mg/dL (8-23); Calcium 8.1 mg/dL (8.5-10.5); Carbon Dioxide 25 mmol/L (22-29); Chloride 106 mmol/L (98-107); Globulin 1.9 g/dL (1.3-4.6); Glucose 102 mg/dL (65-115); Magnesium 1.8 mg/dL (1.7-2.3); Osmolality Calculated 292 mOsm/kg (285-295); Potassium 3.8 mmol/L (3.5-5.1); Sodium 140 mmol/L (136-145); Total Bilirubin 0.4 mg/dL (0.15-1.2); Total Protein 5.4 g/dL (6.6-8.7)
[2021-07-04] MEDS: famotidine 20 mg/2 mL INJ IVP ×2 (07:44→20:16)
[2021-07-04] MEDS: heparin 5,000 unit/mL INJ 1 mL 5000 UNIT SUBCUT ×2 (07:44→20:16)
[2021-07-04] MEDS: metoprolol succinate ER (24 HR) 25 mg Tablet PO (07:45)
[2021-07-04] MEDS: HYDROmorphone 1 mg/mL INJ 1 mL IVP ×3 (07:54→20:16)
[2021-07-04 10:00] LABS: Folate Level 11.6 ng/mL (4.8-37.3)
[2021-07-04 10:01] LABS: Vitamin B12 195 pg/mL (232-1245)
[2021-07-04] MEDS: methIMAzole 5 MG Tablet 2.5 MG PO (10:32)
[2021-07-04 11:04] LABS: LAB Peripheral Smear Sent for Review
--- NOTE | 2021-07-04 16:13 | P.PN_ITS ---
Subjective Subjective: Interval history: Patient was seen this morning, she tells me that her pain is well controlled, no fevers, chills, no nausea, no vomiting, no chest pain Vitals/I&O/Wt Last Vital Signs Temp 98.5 F 07/04/21 15:53 Pulse 79 07/04/21 15:53 Resp 16 07/04/21 15:53 BP 100/55 07/04/21 15:53 Pulse Ox 94 07/04/21 15:53 07/04/21 07/04/21 07/04/21 06:59 14:59 22:59 Intake Total 413.75 / 413.75 1480 / 1480 Output Total 300 / 300 Balance 113.75 / 113.75 1480 / 1480 Weight last 48 hrs Weight 58.627 kg Weight 56.699 kg Physical Exam Const: COMMON NORMALS: no acute distress and patient oriented x3 Resp: COMMON NORMALS: normal respiratory effort, No retractions, No use of accessory muscles and clear to auscultation bilaterally AUSCULTATION: clear to auscultation bilaterally Cardio: COMMON NORMALS: regular rate, regular rhythm, S1 normal heart sound present and S2 normal heart sound present RATE: regular rate RHYTHM: regular rhythm HEART SOUNDS: S1 normal heart sound present and S2 normal heart sound present GI: COMMON NORMALS: Normal to inspection, nondistended, normoactive bowel sounds present, Soft to palpation and non-tender PALPATION: Yes Soft to palpation Extremity: COMMON NORMALS: no pedal edema Neuro: COMMON NORMALS: patient oriented x3 Psych: COMMON NORMALS: mental status grossly normal Urinary Catheter Management^: Palacio: Cath Placed During This Visit: yes Urinary Catheter Date of Insertion: 07/03/21 Urinary Catheter Time of Insertion: 17:40 Data : 07/04/21 05:39 07/04/21 05:39 A&P Assessment and plan (1) Hip fracture, right: -Status post mechanical fall -Right hip basicervical fracture with impaction and angulation. -CT of the head no acute findings, CT cervical spine no acute findings -EKG no acute ST-T wave changes, serial troponins no clinically significant delta troponin -Pain control Dilaudid -Bedrest, after surgery PT OT -Orthopedic service on consult -DNR/DNI -Heparin for DVT prophylaxis Paroxysmal A. fib, telemetry monitoring, Eliquis on hold, continue metoprolol Graves' disease, continue methimazole Fall, prolonged immobility, Rhabdomyolysis, elevated CPK, gentle IV hydration Vitamin B12 deficiency, start vitamin B12 Status: Acute Qualifiers: Encounter type: initial encounter Fracture type: closed Qualified Code(s): S72.001A - Fracture of unspecified part of neck of right femur, initial encounter for closed fracture (2) Paroxysmal A-fib: Status: Acute (3) Graves' disease: Status: Acute (4) Iron malabsorption: Status: Acute (5) Rhabdomyolysis: Status: Acute Attestations Medical Necessity Statement*: Patient requires hospitalization for right hip fracture Coding Level of Care Code Acute Reservations Agent for [facility] Diagnoses Hip fracture, right S72.001A Encounter type: initial encounter Fracture type: closed Paroxysmal A-fib I48.0 Graves' disease E05.00 Iron malabsorption K90.9 Rhabdomyolysis M62.82
--- NOTE | 2021-07-04 17:10 | P.CONIM_ITS ---
Providers/Reason For Consult Consulting Physician/Specialty*: Anton Guzman MD; orthopedic surgery Reason for Consult*: Occult femoral neck fracture Attending Physician: Robbin Walls MD Primary Care Provider: Amrit Ivey MD History of Present Illness History of Present Illness Anu Rivera is a 80 year old female who fell at home with resulting pain in her right hip. She is seen in our emergency room radiographs revealed a basicervical right femoral neck fracture. She has a history of intermittent atrial fibrillation and is managed with apixaban. Her last dose was reportedly yesterday morning. She is admitted admitted to the medicine service for medical management with anticipated surgery tomorrow when she has adequate time for clearance for the apixaban. She previously was fully ambulatory at home. She lives with a brother. Meds/Allergies Home Medications and Allergies Home Medications Medication Instructions Recorded Confirmed Last Taken Type methimazole 5 mg tablet 2.5 mg PO DAILY tab 04/09/20 07/03/21 07/02/21 History acetaminophen 500 mg tablet 1,000 mg PO BID PRN tab 05/12/20 07/03/21 12/01/20 History apixaban 5 mg tablet 5 mg PO BID #60 tab 12/01/20 07/03/21 07/02/21 Rx vitamins A,C,T-mngw-vekkee 14,320 1 cap PO BID 05/12/21 07/03/21 07/02/21 History unit-226 mg-200 unit capsule metoprolol succinate 12.5 mg PO DAILY 07/03/21 07/03/21 07/02/21 History Allergies Allergy/AdvReac Type Severity Reaction Status Date / Time No Known Allergies Allergy Verified 05/26/21 11:10 Current Medications Current Medications Generic Name Dose Route Start Last Admin Trade Name Freq PRN Reason Stop Dose Admin Famotidine 20 mg 07/03/21 21:00 07/04/21 07:44 Famotidine 20 Mg/2 Ml Inj IVP 20 mg Q12H TRAVON Administration Heparin Sodium (Porcine) 5,000 unit 07/03/21 21:00 07/04/21 07:44 Heparin 5,000 Unit/Ml Inj 1 Ml SUBCUT 5,000 unit Q12H TRAVON Administration Hydromorphone HCl 1 mg 07/03/21 20:17 07/04/21 13:56 Hydromorphone 1 Mg/Ml Inj 1 Ml IVP 1 mg Q4H PRN Administration PAIN Sodium Chloride 1,000 mls @ 75 mls/hr 07/03/21 20:17 07/04/21 14:42 Sodium Chloride 0.9% IV 75 mls/hr .[id number] TRAVON Administration Methimazole 2.5 mg 07/04/21 09:00 07/04/21 10:32 Methimazole 5 Mg Tablet PO 2.5 mg DAILY TRAVON Administration Metoprolol Succinate 25 mg 07/04/21 09:00 07/04/21 07:45 Metoprolol Succinate Er (24 Hr) 25 Mg Tablet PO 25 mg DAILY TRAVON Administration PFSH Acute PFSH: Medical History Graves' disease Iron malabsorption Paroxysmal A-fib Surgical History H/O kyphoplasty History of tonsillectomy Family History Mother Cancer Sister Cancer Other Heart disease Social History Alcohol intake: current Adopted: No service: No History of recent travel: No Current gender identity: Female Vitals/I&O/Wt Last Vital Signs Temp 98.5 F 07/04/21 15:53 Pulse 79 07/04/21 15:53 Resp 16 07/04/21 15:53 BP 100/55 07/04/21 15:53 Pulse Ox 94 07/04/21 15:53 07/04/21 07/04/21 07/04/21 06:59 14:59 22:59 Intake Total 413.75 / 413.75 1480 / 1480 Output Total 300 / 300 Balance 113.75 / 113.75 1480 / 1480 Weight last 48 hrs Weight 129 lb 4 oz Weight 125 lb Physical Exam Narrative: EXAM NARRATIVE: The patient has shortening and external rotation of the right hip. There is not a great deal swelling about the right hip I can see. She has pain with any internal or external rotation of the right hip. She will flex and extend her right toes and ankle. She has a palpable Gr pedis pulse. Her sensation is intact to light touch. Urinary Catheter Management^: Palacio: Cath Placed During This Visit: yes Urinary Catheter Date of Insertion: 07/03/21 Urinary Catheter Time of Insertion: 17:40 Data Imaging^: Other Xray: My impression: Radiographs of the right hip are reviewed from our emergency room dated 07/03/2021. The patient has a displaced basicervical right femoral neck fracture. A&P Assessment and plan (1) Hip fracture, right: The patient seems to have a basicervical femoral neck fracture. I told her that this could reasonably treated with open reduction and internal fixation of my opinion. We will have a better idea when we get her out in traction in the operating room. I discussed risk of nonunion malunion. I discussed risk of avascular necrosis. I made aware the potential for hardware complications. Discussed the possible need for further procedures. She has family at home and we will try to see if we can get her amatory enough to be discharged home. She will need senior care. We will proceed tomorrow after she has had time to metabolize apixaban in her system. Status: Acute Qualifiers: Encounter type: initial encounter Fracture type: closed Qualified Code(s): S72.001A - Fracture of unspecified part of neck of right femur, initial encounter for closed fracture Coding Level of Care Code Acute Mechanical Intern for [facility] Diagnoses Hip fracture, right S72.001A Encounter type: initial encounter Fracture type: closed
[2021-07-04] MEDS: cyanocobalamin 1,000 mcg Tablet 1000 MCG PO (17:54)
[2021-07-05] VITALS (24 sets, daily range): BP systolic 115–165; BP diastolic 62–100; PULSE 70–105; RESP 14–25; TEMP 36.3–37.6; O2SAT 93–99
--- NOTE | 2021-07-05 | SCC_ITS ---
Procedure Done: Open reduction internal fixation right basicervical femoral neck fracture 70.8 seconds of fluoroscopic guidance, for a cumulative dose of 4.0 mGy, was provided to Dr. Guzman by the radiology department. C-arm images of the RIGHT hip were saved for the patient's permanent record. [facility]
--- NOTE | 2021-07-05 | XR_ITS ---
WS: [id number] C-ARM RADIOGRAPHS RIGHT HIP; 3 IMAGES HISTORY: [facility] COMPARISON: 07/03/2021 Intraoperative fixation using screws and plates stabilizing an intertrochanteric fracture which is no w in good position and alignment. XR/XR hip RT 1V wo/w pel [id number] IMPRESSION: Intraoperative ORIF intertrochanteric fracture in good alignment.
[2021-07-05] MEDS: HYDROmorphone 1 mg/mL INJ 1 mL IVP (04:55)
[2021-07-05 05:08] LABS: Basophils % 0.4 %; Eosinophils % 0.6 %; Hematocrit 27.2 % (37.0-47.0); Hemoglobin 8.2 g/dL (11.5-15.3); Lymphocytes % 19.2 %; Mean Corpuscular HGB Conc 30.1 g/dL (30.0-36.0); Mean Corpuscular Hemoglobin 30.9 pg (28.0-34.0); Mean Corpuscular Volume 102.6 fl (81-99); Mean Platelet Volume 9.3 fL (7.4-10.4); Monocytes # 0.4 10^3/uL (0.2-0.9); Monocytes % 7.8 %; Neutrophils # 3.75 10^3/uL (1.8-7.7); Neutrophils % 71.4 %; Nucleated Red Blood Cells % 0 %; Platelet Count 167 10^3/cmm (130-400); Red Blood Count 2.65 10^6/uL (4.1-5.3); Red Cell Distribution Width 19.9 % (12.1-15.1); White Blood Count 5.3 10^3/uL (4.0-10.0)
[2021-07-05 05:22] LABS: INR 1.03 (0.8-1.2)
[2021-07-05 05:32] LABS: Alanine Aminotransferase 13 U/L (0-33); Albumin Level 3.2 g/dL (3.5-5.2); Alkaline Phosphatase 95 IU/L (35-105); Anion Gap 11.6 (5-19); Aspartate Amino Transferase 18 U/L (0-32); Blood Urea Nitrogen 18 mg/dL (8-23); Carbon Dioxide 24 mmol/L (22-29); Chloride 107 mmol/L (98-107); Globulin 1.9 g/dL (1.3-4.6); Glucose 97 mg/dL (65-115); Magnesium 1.9 mg/dL (1.7-2.3); Osmolality Calculated 290 mOsm/kg (285-295); Potassium 3.6 mmol/L (3.5-5.1); Sodium 139 mmol/L (136-145); Total Bilirubin 0.3 mg/dL (0.15-1.2); Total Protein 5.1 g/dL (6.6-8.7)
[2021-07-05] MEDS: famotidine 20 mg/2 mL INJ IVP (08:05)
[2021-07-05] MEDS: metoprolol succinate ER (24 HR) 25 mg Tablet PO (08:06)
--- NOTE | 2021-07-05 13:10 | PM.PN ---
Subjective Subjective: Interval history: Patient was seen this morning, no fevers, chills, no chest pain, no palpitations, pain is well controlled, she is awaiting her surgery in the afternoon Vitals/I&O/Wt Last Vital Signs Temp 98.2 F 07/05/21 11:24 Pulse 80 07/05/21 11:24 Resp 14 07/05/21 11:24 BP 123/73 07/05/21 11:24 Pulse Ox 94 07/05/21 11:24 07/04/21 07/05/21 07/05/21 22:59 06:59 14:59 Intake Total 1000 / 2480 Output Total 150 / 150 1000 / 1150 Balance -150 / 1330 0 / 1330 Weight last 48 hrs Weight 58.627 kg Weight 56.699 kg Physical Exam Const: COMMON NORMALS: no acute distress and patient oriented x3 Resp: COMMON NORMALS: normal respiratory effort, No retractions, No use of accessory muscles and clear to auscultation bilaterally AUSCULTATION: clear to auscultation bilaterally Cardio: COMMON NORMALS: regular rate, regular rhythm, S1 normal heart sound present and S2 normal heart sound present RATE: regular rate RHYTHM: regular rhythm HEART SOUNDS: S1 normal heart sound present and S2 normal heart sound present GI: COMMON NORMALS: Normal to inspection, nondistended, normoactive bowel sounds present, Soft to palpation and non-tender PALPATION: Yes Soft to palpation Extremity: COMMON NORMALS: no pedal edema Neuro: COMMON NORMALS: patient oriented x3 Psych: COMMON NORMALS: mental status grossly normal Urinary Catheter Management^: Palacio: Cath Placed During This Visit: yes Urinary Catheter Date of Insertion: 07/03/21 Urinary Catheter Time of Insertion: 17:40 Data : 07/05/21 04:45 07/05/21 04:45 A&P Assessment and plan (1) Hip fracture, right: -Status post mechanical fall -Right hip basicervical fracture with impaction and angulation. -CT of the head no acute findings, CT cervical spine no acute findings -EKG no acute ST-T wave changes, serial troponins no clinically significant delta troponin -Pain control Dilaudid -Bedrest, after surgery PT OT -Orthopedic service on consult, n.p.o., surgery this afternoon -DNR/DNI -Heparin for DVT prophylaxis Acute on chronic anemia, hemoglobin down to 8.3, continue to monitor, ferritin, iron, Hemoccult stool, Protonix 40 twice daily Paroxysmal A. fib, telemetry monitoring, Eliquis on hold, continue metoprolol Graves' disease, continue methimazole Fall, prolonged immobility, Rhabdomyolysis, elevated CPK, gentle IV hydration Vitamin B12 deficiency, start vitamin B12 Status: Acute Qualifiers: Encounter type: initial encounter Fracture type: closed Qualified Code(s): S72.001A - Fracture of unspecified part of neck of right femur, initial encounter for closed fracture (2) Paroxysmal A-fib: Status: Acute (3) Graves' disease: Status: Acute (4) Iron malabsorption: Status: Acute (5) Rhabdomyolysis: Status: Acute Attestations Medical Necessity Statement*: Patient requires hospitalization for right-sided hip fracture, with acute on chronic anemia Coding Level of Care Code Acute Junior Programmer Analyst for [facility] Diagnoses Hip fracture, right S72.001A Encounter type: initial encounter Fracture type: closed Paroxysmal A-fib I48.0 Graves' disease E05.00 Iron malabsorption K90.9 Rhabdomyolysis M62.82
[2021-07-05 13:46] LABS: Reticulocyte % 2.6 % (0.5-2.0)
[2021-07-05 14:26] LABS: Iron 29 ug/dL (37-145)
[2021-07-05 14:47] LABS: Ferritin 1311 ng/mL (15-150)
[2021-07-05] MEDS: fentaNYL 50 mcg/mL INJ 2mL IVP ×3 (15:26→19:21)
--- NOTE | 2021-07-05 17:03 | ANES.PREANE2 ---
Pre-Anesthetic Assessment Pre-Anesthetic Assessment: Height/Weight: Height 1.63 m Weight 58.627 kg Temp Pulse Resp BP Pulse Ox 98.7 F 84 18 158/74 96 07/05/21 14:25 07/05/21 14:25 07/05/21 15:26 07/05/21 14:25 07/05/21 15:26 Proposed Procedure: Operation Date: 07/05/21 15:20 Proposed Procedures p Open Reduction and internal fixation right Hip(Right) - Anton Guzman MD Social: Social History: No tobacco Exam: Pre-Anes Outpt Exam: alert, oriented x 3, clear to auscultation bilaterally and regular rate & rhythm Airway: Submandibular: WNL Cervical ROM: WNL MP: 2 Pulmonary: Pulmonary: None reported CV/HEM: CV/HEM: Afib : : None reported Hepatic: Hepatic: None reported GI: GI: None reported Metabolic: Metabolic: Thyroid Musc/skel: Musc/skel: None reported Neuropsych: Neuropsych: None reported Anesthetic Plan: ASA status: 3 Anesthesia: Anesthesia Evaluation and General Meds/Allergies Current Medications: Current Medications Generic Name Dose Route Start Last Admin Trade Name Freq PRN Reason Stop Dose Admin Cyanocobalamin 1,000 mcg 07/04/21 16:20 07/05/21 08:10 Cyanocobalamin 1 ,000 Mcg Tablet PO Not Given DAILY TRAVON Fentanyl 50 mcg 07/05/21 14:37 07/05/21 15:26 Fentanyl 50 Mcg/ Ml Inj 2ml IVP 50 mcg Q10M PRN Administration Preop Pain Heparin Sodium (Po rcine) 5,000 unit 07/03/21 21:00 07/05/21 09:52 Heparin 5,000 Un it/Ml Inj 1 Ml SUBCUT Not Given Q12H TRAVON Hydromorphone HCl 1 mg 07/03/21 20:17 07/05/21 04:55 Hydromorphone 1 Mg/Ml Inj 1 Ml IVP 1 mg Q4H PRN Administration PAIN Sodium Chloride 1,000 mls @ 50 ml s/hr 07/03/21 20:17 07/05/21 04:02 Sodium Chloride 0.9% IV Infused .Q20H TRAVON Infusion Methimazole 2.5 mg 07/04/21 09:00 07/05/21 08:11 Methimazole 5 Mg Tablet PO Not Given DAILY TRAVON Metoprolol Succina te 25 mg 07/04/21 09:00 07/05/21 08:06 Metoprolol Succi aylin Er (24 Hr) 25 Mg Tablet PO 25 mg DAILY TRAVON Administration PFSH Anesthesia PFSH: Medical History Graves' disease Iron malabsorption Paroxysmal A-fib Surgical History H/O kyphoplasty History of tonsillectomy Family History Mother Cancer Sister Cancer Other Heart disease Social History Alcohol intake: current Adopted: No service: No History of recent travel: No Current gender identity: Female Data Anesthesia CBC & Chem 7: 07/05/21 04:45 07/05/21 04:45 Other Labs: Laboratory Results - last 48 hr 07/03/21 07/03/21 07/03/21 14:40 14:40 14:40 WBC 11.1 H RBC 3.42 L Hgb 11.0 L Hct 34.7 L MCV 101.5 H MCH 32.2 MCHC 31.7 RDW 20.8 H Plt Count 269 MPV 9.9 Neut % (Auto) 84.9 Lymph % (Auto) 6.5 [place] % (Auto) 7.7 Eos % (Auto) 0.0 Baso % (Auto) 0.2 Reticulocyte % (Auto) Neut # (Auto) 9.44 H Lymph # (Auto) 0.7 L [place] # (Auto) 0.9 Eos # (Auto) 0.0 Baso # (Auto) 0.0 Nucleated RBC % (auto) 0 Nucleated RBCs # 0.0 PT INR Sodium 139 Potassium 3.6 Chloride 100 Carbon Dioxide 21 L Anion Gap 21.6 H BUN 13 Creatinine 0.6 GFR Calculation Not Reportable Glucose 166 H Calculated Osmolality 292 Calcium 8.7 Magnesium Iron Ferritin Total Bilirubin AST ALT Alkaline Phosphatase Creatine Kinase 629 H* Troponin T Baseline Troponin T 120 Minute Delta Troponin T Troponin T Hi Sens 6Hr Troponin T Hi Sens 6Hr Delta NT-Pro-B Natriuret Pep 744 H Total Protein Albumin Globulin Vitamin B12 Folate TSH Urine Color Urine Appearance Urine pH Ur Specific [place] Urine Protein Urine Glucose (UA) Urine Ketones Urine Blood Urine Nitrate Urine Bilirubin Urine Urobilinogen Ur Leukocyte Esterase Urine RBC Urine WBC Ur Squamous Epith Cells Amorphous Sediment Urine Bacteria Urine Mucus Blood Type Rho(D) Type Antibody Screen Crossmatch 07/03/21 07/03/21 07/03/21 14:40 14:40 14:40 WBC RBC Hgb Hct MCV MCH MCHC RDW Plt Count MPV Neut % (Auto) Lymph % (Auto) [place] % (Auto) Eos % (Auto) Baso % (Auto) Reticulocyte % (Auto) Neut # (Auto) Lymph # (Auto) [place] # (Auto) Eos # (Auto) Baso # (Auto) Nucleated RBC % (auto) Nucleated RBCs # PT INR Sodium Potassium Chloride Carbon Dioxide Anion Gap BUN Creatinine GFR Calculation Glucose Calculated Osmolality Calcium Magnesium Iron Ferritin Total Bilirubin AST ALT Alkaline Phosphatase Creatine Kinase Troponin T Baseline 30 H Troponin T 120 Minute Delta Troponin T Troponin T Hi Sens 6Hr Troponin T Hi Sens 6Hr Delta NT-Pro-B Natriuret Pep Total Protein Albumin Globulin Vitamin B12 195 L Folate 11.6 TSH Urine Color Urine Appearance Urine pH Ur Specific [place] Urine Protein Urine Glucose (UA) Urine Ketones Urine Blood Urine Nitrate Urine Bilirubin Urine Urobilinogen Ur Leukocyte Esterase Urine RBC Urine WBC Ur Squamous Epith Cells Amorphous Sediment Urine Bacteria Urine Mucus Blood Type Rho(D) Type Antibody Screen Crossmatch 07/03/21 07/03/21 07/03/21 17:33 20:53 20:53 WBC RBC Hgb Hct MCV MCH MCHC RDW Plt Count MPV Neut % (Auto) Lymph % (Auto) [place] % (Auto) Eos % (Auto) Baso % (Auto) Reticulocyte % (Auto) Neut # (Auto) Lymph # (Auto) [place] # (Auto) Eos # (Auto) Baso # (Auto) Nucleated RBC % (auto) Nucleated RBCs # PT INR Sodium Potassium Chloride Carbon Dioxide Anion Gap BUN Creatinine GFR Calculation Glucose Calculated Osmolality Calcium Magnesium Iron Ferritin Total Bilirubin AST ALT Alkaline Phosphatase Creatine Kinase Troponin T Baseline Troponin T 120 Minute 33.64 H Delta Troponin T Not Reportable Troponin T Hi Sens 6Hr Troponin T Hi Sens 6Hr Delta NT-Pro-B Natriuret Pep Total Protein Albumin Globulin Vitamin B12 Folate TSH 2.02 Urine Color Yellow Urine Appearance Hazy A Urine pH 5 Ur Specific [place] 1.025 Urine Protein Neg Urine Glucose (UA) 1+ H Urine Ketones 2+ H Urine Blood Neg Urine Nitrate Negative Urine Bilirubin Neg Urine Urobilinogen Norm Ur Leukocyte Esterase Negative Urine RBC 0-4 H Urine WBC 0-4 H Ur Squamous Epith Cells 0-4 H Amorphous Sediment Not Reportable Urine Bacteria Trace Urine Mucus Trace Blood Type Rho(D) Type Antibody Screen Crossmatch 07/03/21 07/04/21 07/04/21 23:15 05:39 05:39 WBC 6.5 RBC 2.78 L Hgb 8.8 L Hct 28.4 L MCV 102.2 H MCH 31.7 MCHC 31.0 RDW 20.3 H Plt Count 201 MPV 9.7 Neut % (Auto) 75.3 Lymph % (Auto) 13.5 [place] % (Auto) 10.7 Eos % (Auto) 0.0 Baso % (Auto) 0.2 Reticulocyte % (Auto) Neut # (Auto) 4.93 Lymph # (Auto) 0.9 [place] # (Auto) 0.7 Eos # (Auto) 0.0 Baso # (Auto) 0.0 Nucleated RBC % (auto) 0 Nucleated RBCs # 0.0 PT 15.20 H INR 1.17 Sodium Potassium Chloride Carbon Dioxide Anion Gap BUN Creatinine GFR Calculation Glucose Calculated Osmolality Calcium Magnesium Iron Ferritin Total Bilirubin AST ALT Alkaline Phosphatase Creatine Kinase Troponin T Baseline Troponin T 120 Minute Delta Troponin T Troponin T Hi Sens 6Hr 33.10 H Troponin T Hi Sens 6Hr Delta Not Reportable NT-Pro-B Natriuret Pep Total Protein Albumin Globulin Vitamin B12 Folate TSH Urine Color Urine Appearance Urine pH Ur Specific [place] Urine Protein Urine Glucose (UA) Urine Ketones Urine Blood Urine Nitrate Urine Bilirubin Urine Urobilinogen Ur Leukocyte Esterase Urine RBC Urine WBC Ur Squamous Epith Cells Amorphous Sediment Urine Bacteria Urine Mucus Blood Type Rho(D) Type Antibody Screen Crossmatch 07/04/21 07/05/21 07/05/21 05:39 04:45 04:45 WBC 5.3 RBC 2.65 L Hgb 8.2 L Hct 27.2 L MCV 102.6 H MCH 30.9 MCHC 30.1 RDW 19.9 H Plt Count 167 MPV 9.3 Neut % (Auto) 71.4 Lymph % (Auto) 19.2 [place] % (Auto) 7.8 Eos % (Auto) 0.6 Baso % (Auto) 0.4 Reticulocyte % (Auto) Neut # (Auto) 3.75 Lymph # (Auto) 1.0 [place] # (Auto) 0.4 Eos # (Auto) 0.0 Baso # (Auto) 0.0 Nucleated RBC % (auto) 0 Nucleated RBCs # 0.0 PT 13.80 INR 1.03 Sodium 140 Potassium 3.8 Chloride 106 Carbon Dioxide 25 Anion Gap 12.8 BUN 18 Creatinine 0.8 GFR Calculation Not Reportable Glucose 102 Calculated Osmolality 292 Calcium 8.1 L Magnesium 1.8 Iron Ferritin Total Bilirubin 0.4 AST 15 ALT 11 Alkaline Phosphatase 100 Creatine Kinase Troponin T Baseline Troponin T 120 Minute Delta Troponin T Troponin T Hi Sens 6Hr Troponin T Hi Sens 6Hr Delta NT-Pro-B Natriuret Pep Total Protein 5.4 L Albumin 3.5 Globulin 1.9 Vitamin B12 Folate TSH Urine Color Urine Appearance Urine pH Ur Specific [place] Urine Protein Urine Glucose (UA) Urine Ketones Urine Blood Urine Nitrate Urine Bilirubin Urine Urobilinogen Ur Leukocyte Esterase Urine RBC Urine WBC Ur Squamous Epith Cells Amorphous Sediment Urine Bacteria Urine Mucus Blood Type Rho(D) Type Antibody Screen Crossmatch 07/05/21 07/05/21 07/05/21 04:45 04:45 04:45 WBC RBC Hgb Hct MCV MCH MCHC RDW Plt Count MPV Neut % (Auto) Lymph % (Auto) [place] % (Auto) Eos % (Auto) Baso % (Auto) Reticulocyte % (Auto) 2.6 H Neut # (Auto) Lymph # (Auto) [place] # (Auto) Eos # (Auto) Baso # (Auto) Nucleated RBC % (auto) Nucleated RBCs # PT INR Sodium 139 Potassium 3.6 Chloride 107 Carbon Dioxide 24 Anion Gap 11.6 BUN 18 Creatinine 0.8 GFR Calculation Not Reportable Glucose 97 Calculated Osmolality 290 Calcium 8.0 L Magnesium 1.9 Iron 29 L Ferritin 1311 H Total Bilirubin 0.3 AST 18 ALT 13 Alkaline Phosphatase 95 Creatine Kinase Troponin T Baseline Troponin T 120 Minute Delta Troponin T Troponin T Hi Sens 6Hr Troponin T Hi Sens 6Hr Delta NT-Pro-B Natriuret Pep Total Protein 5.1 L Albumin 3.2 L Globulin 1.9 Vitamin B12 Folate TSH Urine Color Urine Appearance Urine pH Ur Specific [place] Urine Protein Urine Glucose (UA) Urine Ketones Urine Blood Urine Nitrate Urine Bilirubin Urine Urobilinogen Ur Leukocyte Esterase Urine RBC Urine WBC Ur Squamous Epith Cells Amorphous Sediment Urine Bacteria Urine Mucus Blood Type Rho(D) Type Antibody Screen Crossmatch 07/05/21 04:45 WBC RBC Hgb Hct MCV MCH MCHC RDW Plt Count MPV Neut % (Auto) Lymph % (Auto) [place] % (Auto) Eos % (Auto) Baso % (Auto) Reticulocyte % (Auto) Neut # (Auto) Lymph # (Auto) [place] # (Auto) Eos # (Auto) Baso # (Auto) Nucleated RBC % (auto) Nucleated RBCs # PT INR Sodium Potassium Chloride Carbon Dioxide Anion Gap BUN Creatinine GFR Calculation Glucose Calculated Osmolality Calcium Magnesium Iron Ferritin Total Bilirubin AST ALT Alkaline Phosphatase Creatine Kinase Troponin T Baseline Troponin T 120 Minute Delta Troponin T Troponin T Hi Sens 6Hr Troponin T Hi Sens 6Hr Delta NT-Pro-B Natriuret Pep Total Protein Albumin Globulin Vitamin B12 Folate TSH Urine Color Urine Appearance Urine pH Ur Specific [place] Urine Protein Urine Glucose (UA) Urine Ketones Urine Blood Urine Nitrate Urine Bilirubin Urine Urobilinogen Ur Leukocyte Esterase Urine RBC Urine WBC Ur Squamous Epith Cells Amorphous Sediment Urine Bacteria Urine Mucus Blood Type O Positive Rho(D) Type Positive Antibody Screen Negative Crossmatch See Detail Cardiac Studies: No Data to Display
[2021-07-05] MEDS: ceFAZolin 1,000 mg SDV 1000 MG (18:25)
--- NOTE | 2021-07-05 19:10 | P.OP_ITS ---
Operative Report Date of procedure: July 05, 2021 Pre-op Diagnosis: Basicervical right femoral neck fracture Post-op diagnosis: same Post-op Findings: Same Procedure Done: Open reduction internal fixation right basicervical femoral neck fracture Implants: Cesar 135 degree 2 hole compression screw sideplate with 85 mm lag screw 85 x 6.5 mm Asnis screw Pathology: none sent Surgeon: Anton Guzman Anesthesia: General Estimated blood loss (mL): 200 Complications: None Findings: the patient had a basicervical right femoral neck fracture Condition: stable Disposition: PACU Procedure: The patient was taken the operating and given 2 g of Ancef and a gen eral anesthesia. She was positioned on the fracture table with the right lower extremity in gentle traction. Reduction of the right hip was identified under fluoroscopy. A 4 cm long incision was made just below the greater trochanter longitudinally with dissection carried down through the subcutaneous fat fascia samantha and vastus lateralis. The vastus lateralis was reflected anteriorly. Under the visualization of fluoroscopy a guidepin was driven in a central inferior location into the femoral head. A second guidepin was placed approximately 2 cm proximal central in the head. Over that second guidepin the 6.5 mm derotational asthma screw was placed. Over the distal guidepin the lateral reamer was passed. The 135degrees compression screw sideplate was placed with a 95 mm leg screw. To bicortical screws were placed through the plate securing it to the lateral femur. Compression screw was placed compressing the fracture site. Wounds were irrigated with saline. The fascial samantha was closed with 0 Ethibond suture. The subcutaneous fat was closed with 2- 0 Stratafix suture. The skin was closed with a running4-0 Stratafix. Sterile dressings were applied. The patient was extubated and taken to recovery room in stable condition.
[2021-07-05] MEDS: HYDROmorphone 1 mg/mL INJ 1 mL 0.5 MG IVP (19:27)
--- NOTE | 2021-07-05 19:29 | ANE.PACU2 ---
Inpatient post-anesthesia follow up: Airway intact: Yes Vital signs: Temperature 99.7 F Pulse Rate [Left R adial] 100 Pulse Rate 87 Respiratory Rate 14 Blood Pressure [Ri ght Arm] 161/99 Blood Pressure 150/100 Pulse Oximetry 94 Oxygen Delivery Me thod Room Air Oxygen Flow Rate Fraction of Inspir ed Oxygen Hydration adequate: Yes Nausea and vomiting: No Pain level: 2 Mental status: Baseline
[2021-07-05 21:13] LABS: Basophils % 0.3 %; Eosinophils % 0.2 %; Hematocrit 29.1 % (37.0-47.0); Hemoglobin 8.8 g/dL (11.5-15.3); Lymphocytes # 0.6 10^3/uL (0.8-4.8); Lymphocytes % 8.3 %; Mean Corpuscular HGB Conc 30.2 g/dL (30.0-36.0); Mean Corpuscular Hemoglobin 32.1 pg (28.0-34.0); Mean Corpuscular Volume 106.2 fl (81-99); Mean Platelet Volume 9.6 fL (7.4-10.4); Monocytes # 0.2 10^3/uL (0.2-0.9); Monocytes % 2.9 %; Neutrophils % 87.2 %; Nucleated Red Blood Cells % 0 %; Platelet Count 167 10^3/cmm (130-400); Red Blood Count 2.74 10^6/uL (4.1-5.3); Red Cell Distribution Width 18.9 % (12.1-15.1); White Blood Count 6.6 10^3/uL (4.0-10.0)
[2021-07-05] MEDS: sodium chloride 0.9% 1,000 ML 75 ML IV (21:54)
[2021-07-05] MEDS: chlorhexidine gluconate 0.12% Btl 473 mL 30 ML MUCOUS MEM (21:55)
[2021-07-06] VITALS (9 sets, daily range): BP systolic 127–165; BP diastolic 69–75; PULSE 67–91; RESP 16; TEMP 36.4–36.8; O2SAT 94–97
[2021-07-06] MEDS: HYDROcodone-acetaminophen 5-325 mg Tablet 1 TAB PO ×3 (01:44→19:38)
[2021-07-06 06:34] LABS: Hematocrit 24.8 % (37.0-47.0); Hemoglobin 7.9 g/dL (11.5-15.3); Lymphocytes # 0.6 10^3/uL (0.8-4.8); Lymphocytes % 12.3 %; Mean Corpuscular HGB Conc 31.9 g/dL (30.0-36.0); Mean Corpuscular Volume 100.4 fl (81-99); Mean Platelet Volume 9.8 fL (7.4-10.4); Monocytes # 0.3 10^3/uL (0.2-0.9); Monocytes % 7.2 %; Neutrophils # 3.78 10^3/uL (1.8-7.7); Neutrophils % 79.9 %; Nucleated Red Blood Cells % 0 %; Platelet Count 180 10^3/cmm (130-400); Red Blood Count 2.47 10^6/uL (4.1-5.3); White Blood Count 4.7 10^3/uL (4.0-10.0)
[2021-07-06 06:42] LABS: INR 1.09 (0.8-1.2)
[2021-07-06 06:54] LABS: Alanine Aminotransferase 11 U/L (0-33); Albumin Level 3.1 g/dL (3.5-5.2); Alkaline Phosphatase 80 IU/L (35-105); Anion Gap 17.1 (5-19); Aspartate Amino Transferase 14 U/L (0-32); Blood Urea Nitrogen 14 mg/dL (8-23); Calcium 7.6 mg/dL (8.5-10.5); Carbon Dioxide 20 mmol/L (22-29); Chloride 106 mmol/L (98-107); Globulin 1.8 g/dL (1.3-4.6); Glucose 107 mg/dL (65-115); Magnesium 1.7 mg/dL (1.7-2.3); Osmolality Calculated 289 mOsm/kg (285-295); Potassium 4.1 mmol/L (3.5-5.1); Sodium 139 mmol/L (136-145); Total Bilirubin 0.2 mg/dL (0.15-1.2); Total Protein 4.9 g/dL (6.6-8.7)
[2021-07-06] MEDS: sennosides-docusate Tablet 2 TAB PO ×2 (08:24→17:50)
[2021-07-06] MEDS: apixaban 5 mg Tablet PO ×2 (08:24→17:50)
[2021-07-06] MEDS: mupirocin oint 22 gm 1 APPLIC NASAL ×2 (08:25→17:50)
[2021-07-06] MEDS: sodium chloride 0.9% 1,000 ML 75 ML IV (08:26)
[2021-07-06] MEDS: chlorhexidine gluconate 0.12% Btl 473 mL 30 ML MUCOUS MEM ×4 (08:30→20:48)
--- NOTE | 2021-07-06 12:30 | PC.SOCIAL ---
Pg 2 IMM Explained to pt Pg 2 IMM. No questions voiced. Provided pt a copy. Initialed, dated, & timed a copy & placed in chart.
--- NOTE | 2021-07-06 17:59 | P.PN_ITS ---
Subjective Subjective: Interval history: Pain control reasonable with meds. Palacio dc'd. Has yet to pass urine. Good po liquids Vitals/I&O/Wt Last Vital Signs Temp 97.5 F L 07/06/21 11:57 Pulse 85 07/06/21 14:55 Resp 16 07/06/21 11:57 BP 127/75 07/06/21 11:57 Pulse Ox 96 07/06/21 11:57 07/06/21 07/06/21 07/06/21 06:59 14:59 22:59 Intake Total 60 / 120 850 / 850 Output Total 400 / 1300 Balance -340 / -1180 850 / 850 Physical Exam Narrative: EXAM NARRATIVE: Slight staining right hip dressing Urinary Catheter Management^: Palacio: Cath Placed During This Visit: yes, but has since been removed by the nurse Reason for Continuing Indwelling Catheter: Decision to DC Catheter Urinary Catheter Date of Insertion: 07/03/21 Urinary Catheter Time of Insertion: 17:40 Date Urinary Catheter Removed: 07/06/21 Time Urinary Catheter Discontinued: 13:58 Data : 07/06/21 06:00 07/06/21 06:00 A&P Assessment and plan (1) Postoperative state: Continue to mobilize with therapy. Slow progress today. If does not improve with ambulatory status significantly tomorrow we will need to consider mcc. Status: Acute Attestations Medical Necessity Statement*: Patient slow with therapy. Needs continued hospitalization until ambulatory status improves. Coding Level of Care Code Acute Social Service Agency Director for Alice Tyler Diagnoses Postoperative state Z98.890
--- NOTE | 2021-07-06 20:49 | PM.PN ---
Subjective Subjective: Interval history: States she is overall doing okay. Denies chest pain or pressure. Not lightheaded. Disappointed about having urinary catheter removed. Vitals/I&O/Wt Last Vital Signs Temp 98.0 F 07/06/21 20:04 Pulse 91 07/06/21 20:04 Resp 16 07/06/21 20:04 BP 165/74 07/06/21 20:04 Pulse Ox 95 07/06/21 20:04 07/06/21 07/06/21 07/06/21 06:59 14:59 22:59 Intake Total 60 / 120 850 / 850 Output Total 400 / 1300 Balance -340 / -1180 850 / 850 Physical Exam Const: COMMON NORMALS: no acute distress, patient oriented x3 and alert GENERAL APPEARANCE: cooperative and comfortable ORIENTATION/CONSCIOUSNESS: Yes awake OTHER: Sitting up in chair. HENMT: COMMON NORMALS: oropharynx normal Neck/C-Spine: COMMON NORMALS: no JVD Resp: COMMON NORMALS: normal respiratory effort and clear to auscultation bilaterally AUSCULTATION: clear to auscultation bilaterally Cardio: COMMON NORMALS: no JVD, regular rhythm, S1 normal heart sound present, S2 normal heart sound present and No murmurs present (Cardio) RHYTHM: regular rhythm HEART SOUNDS: S1 normal heart sound present and S2 normal heart sound present GI: COMMON NORMALS: Normal to inspection, nondistended, normoactive bowel sounds present, Soft to palpation and non-tender PALPATION: Yes Soft to palpation Extremity: COMMON NORMALS: no joint enlargement and no pedal edema GENERAL: No cyanosis and No mottling OTHER: Cold pack on right hip. Mild bloody strikethrough, old blood. No active bleeding, no ecchymosis. Mild swelling. Distal LE appears perfused. Neuro: COMMON NORMALS: patient oriented x3 and moves all extremities SENSORIUM/ORIENTATION: Yes alert Skin: COMMON NORMALS: no rashes or lesions noted GENERAL SKIN EXAM: no rashes or lesions noted Urinary Catheter Management^: Palacio: Cath Placed During This Visit: yes, but has since been removed by the nurse Reason for Continuing Indwelling Catheter: Decision to DC Catheter Urinary Catheter Date of Insertion: 07/03/21 Urinary Catheter Time of Insertion: 17:40 Date Urinary Catheter Removed: 07/06/21 Time Urinary Catheter Discontinued: 13:58 Data : 07/06/21 06:00 07/06/21 06:00 A&P Assessment and plan (1) Hip fracture, right: Status post ORIF on 07/05. Acute on chronic anemia, hemoglobin 7.9. Recheck. Restarted on anticoagulation. Palacio removed today. PT, OT. I-S Disposition planning. Status: Acute Qualifiers: Encounter type: initial encounter Fracture type: closed Qualified Code(s): S72.001A - Fracture of unspecified part of neck of right femur, initial encounter for closed fracture (2) Paroxysmal A-fib: Status: Acute (3) Graves' disease: Status: Acute (4) Iron malabsorption: Status: Acute (5) Rhabdomyolysis: Status: Acute Additional A&P Information Acute on chronic anemia, hemoglobin down to 7.9, continue to monitor, ferritin, iron, Hemoccult stool, Protonix 40 twice daily Paroxysmal A. fib, telemetry monitoring, Eliquis restarted, continue metoprolol Graves' disease, continue methimazole Fall, prolonged immobility, Rhabdomyolysis, elevated CPK, received gentle IV hydration. Follow-up CK. Vitamin B12 deficiency, start vitamin B12 Attestations Medical Necessity Statement*: Continue admission for assessment management of acute on chronic anemia, postoperative care after ORIF of right hip following a fracture, disposition planning and arrangements. Coding Level of Care Code Acute Health Care / Medical Job Titles for Alice Tyler Diagnoses Hip fracture, right S72.001A Encounter type: initial encounter Fracture type: closed Paroxysmal A-fib I48.0 Graves' disease E05.00 Iron malabsorption K90.9 Rhabdomyolysis M62.82
[2021-07-06 21:32] LABS: Hemoglobin 7.2 g/dL (11.5-15.3)
[2021-07-07] VITALS (20 sets, daily range): BP systolic 107–165; BP diastolic 59–95; PULSE 68–145; RESP 16–20; TEMP 36.4–36.9; O2SAT 92–98
[2021-07-07] MEDS: HYDROcodone-acetaminophen 5-325 mg Tablet 1 TAB PO ×4 (03:38→20:07)
--- NOTE | 2021-07-07 04:39 | PC.NURSE ---
This nurse was told during report that the patient's cardona was removed around 1400 and patient had not voided. This nurse bladder scanned patient and there was 250 urine on the scanner. This nurse notified Dr. Durand and she said it was fine. Patient voiced this is her normal and she typically doesn't void a lot.
[2021-07-07] MEDS: sodium chloride 0.9% (100 ml) 100 ML (06:46)
--- NOTE | 2021-07-07 07:32 | PM.PN ---
Subjective Subjective: Interval history: Pain OK. Receiving 1 unit PRBCs Vitals/I&O/Wt Last Vital Signs Temp 98.4 F 07/07/21 06:41 Pulse 75 07/07/21 06:41 Resp 18 07/07/21 06:41 BP 163/79 07/07/21 06:41 Pulse Ox 96 07/07/21 06:41 07/06/21 07/07/21 07/07/21 22:59 06:59 14:59 Intake Total 60 / 910 552 / 1462 Balance 60 910 552 / 1462 Physical Exam Narrative: EXAM NARRATIVE: Right hip dressing slightly blood stained. Urinary Catheter Management^: Palacio: Cath Placed During This Visit: yes, but has since been removed by the nurse Reason for Continuing Indwelling Catheter: Decision to DC Catheter Urinary Catheter Date of Insertion: 07/03/21 Urinary Catheter Time of Insertion: 17:40 Date Urinary Catheter Removed: 07/06/21 Time Urinary Catheter Discontinued: 13:58 Data : 07/06/21 21:25 07/06/21 06:00 A&P Assessment and plan (1) Hip fracture, right: Status: Acute Qualifiers: Encounter type: initial encounter Fracture type: closed Qualified Code(s): S72.001A - Fracture of unspecified part of neck of right femur, initial encounter for closed fracture (2) Postoperative state: continue to mobilize. Progress with therapy thus far slow. May need SNF. Status: Acute Attestations Medical Necessity Statement*: DC once independent with walker. May need SNF Coding Level of Care Code Acute Radio Television Technical Director for [facility] Diagnoses Hip fracture, right S72.001A Encounter type: initial encounter Fracture type: closed Postoperative state Z98.890
[2021-07-07] MEDS: sennosides-docusate Tablet 2 TAB PO ×2 (07:41→17:03)
[2021-07-07] MEDS: mupirocin oint 22 gm 1 APPLIC NASAL ×2 (07:42→17:03)
[2021-07-07] MEDS: chlorhexidine gluconate 0.12% Btl 473 mL 30 ML MUCOUS MEM ×3 (07:42→20:09)
[2021-07-07] MEDS: apixaban 5 mg Tablet PO ×2 (07:42→17:03)
--- NOTE | 2021-07-07 09:29 | PC.CHAP ---
Pastoral Care Encounter/Spiritual Assessment Type of Contact [] Declined aircraft machinist visit [] Patient/Family/Request visit [] Outpatient visit [] Follow-up visit [] Physician referral [] Code/Alert [x] Routine visit [] Staff referral [] Actively dying [x] Patient sleeping [] Family support [] [] Out of room [] Palliative care [] [] Receiving care in room [] Pre-surgical visit [] Trauma [] Long length of stay [] ICU visit [] Other: Relational/Emotional Strength [] Patient feels connected with others/family/visitors/staff [] Distress [] Loneliness/isolation [] Abandonment Spirituality of Patient [] Person of Alicia [] Attends Church of their Alicia [] Believes in Prayer [] Reads Bible or Baptist materials [] There are Spiritual issues to be addressed Rod Mill Operator Interventions [] Prayer [] Active listening [] Non-anxious presence [] Spiritual/emotional support [] Crisis/trauma care [] Spiritual counseling [] Bereavement support [] Provided bereavement packet [] Provided Bible/devotional materials [] Provided toy/stuffed animal, coloring book to patient or family member [] Provided Communion [] Anointing/[place] [] Salvation [] Completed spiritual assessment [] Other: Impact on Illness or Injury [] Angry [] Fearful [] Anxious [] Often cries [] Exhaustion [] Unable to work [] Unable to attend buddhist [] Unable to walk/stand [] Unable to read [] Unable to drive [] Unable to eat/drink [] Unable to sleep [] Unable to be with family [] Patient intubated [] Other: Summary Time spent with patient
[2021-07-07 09:39] LABS: Basophils % 0.2 %; Eosinophils # 0.1 10^3/uL (0.0-0.8); Eosinophils % 1.3 %; Hematocrit 26.9 % (37.0-47.0); Hemoglobin 8.6 g/dL (11.5-15.3); Lymphocytes # 0.9 10^3/uL (0.8-4.8); Lymphocytes % 19.1 %; Mean Corpuscular Hemoglobin 31.5 pg (28.0-34.0); Mean Corpuscular Volume 98.5 fl (81-99); Mean Platelet Volume 9.2 fL (7.4-10.4); Monocytes # 0.6 10^3/uL (0.2-0.9); Monocytes % 13.1 %; Neutrophils # 2.94 10^3/uL (1.8-7.7); Neutrophils % 65.2 %; Nucleated Red Blood Cells % 0 %; Platelet Count 172 10^3/cmm (130-400); Red Blood Count 2.73 10^6/uL (4.1-5.3); White Blood Count 4.5 10^3/uL (4.0-10.0)
--- NOTE | 2021-07-07 09:44 | PC.NURSE ---
patient hasn't urinated since cardona was removed yesterday. bladder scan shows 275ml. notified Dr Wooten and vd order to straight cath patient and leave in place if return is greater than 400ml.
[2021-07-07 10:00] LABS: Creatine Phosphokinase 256 U/L (26-192)
--- NOTE | 2021-07-07 10:02 | ECG_ITS ---
[facility] Test Date: 2021-07-07 Pat Name: Anu Rivera Department: Room: 262 Gender: Female Yoker Machine Operator: : [id number] Requested By: Terrence Wooten Order Number: [id number] MD: Gurjit Agrawal M.D. Measurements Intervals [place] Rate: 139 P: [place]: QRS: 19 QRSD: 79 T: 22 QT: 280 QTc: 426 Interpretive Statements ATRIAL FIBRILLATION WITH RAPID VENTRICULAR RESPONSE NONSPECIFIC ST & T-WAVE ABNORMALITY ABNORMAL RHYTHM ECG Compared to ECG 07/04/2021 00:24:59 T-wave abnormality now present Sinus rhythm no longer present Electronically Signed On 07-07-2021 23:25:45 CDT by Gurjit Agrawal M.D. [id number]
--- NOTE | 2021-07-07 10:02 | PC.NURSE ---
patient's heart rate is 140-160. [facility] order for EKG from Dr Wooten
--- NOTE | 2021-07-07 13:19 | PC.NURSE ---
notified Dr Wooten that patient's HR is 157
[2021-07-07] MEDS: metoprolol tartrate 1 mg/1 mL SDV 5 mL 5 MG IVP ×2 (13:44→18:54)
--- NOTE | 2021-07-07 14:59 | PM.PN ---
Subjective Subjective: Interval history: States she is feeling slightly better after receiving PBC transfusion yesterday. Decreased strength endurance when working with PT although appears to do little bit better today. Vitals/I&O/Wt Last Vital Signs Temp 97.9 F 07/07/21 11:13 Pulse 68 07/07/21 14:00 Resp 20 H 07/07/21 11:13 BP 130/88 07/07/21 13:34 Pulse Ox 95 07/07/21 11:13 07/06/21 07/07/21 07/07/21 22:59 06:59 14:59 Intake Total 60 / 910 552 / 1462 510 / 510 Balance 60 / 910 552 / 1462 510 / 510 Physical Exam Const: COMMON NORMALS: no acute distress, patient oriented x3 and alert GENERAL APPEARANCE: cooperative and comfortable ORIENTATION/CONSCIOUSNESS: Yes awake OTHER: Sitting up in bed. HENMT: COMMON NORMALS: oropharynx normal Neck/C-Spine: COMMON NORMALS: no JVD Resp: COMMON NORMALS: normal respiratory effort and clear to auscultation bilaterally AUSCULTATION: clear to auscultation bilaterally Cardio: COMMON NORMALS: no JVD, regular rhythm, S1 normal heart sound present, S2 normal heart sound present and No murmurs present (Cardio) RHYTHM: regular rhythm HEART SOUNDS: S1 normal heart sound present and S2 normal heart sound present GI: COMMON NORMALS: Normal to inspection, nondistended, normoactive bowel sounds present, Soft to palpation and non-tender PALPATION: Yes Soft to palpation Extremity: COMMON NORMALS: no joint enlargement and no pedal edema GENERAL: No cyanosis and No mottling OTHER: Bloody strikethrough, old blood. No active bleeding, no ecchymosis. Mild swelling. Distal LE appears perfused. Neuro: COMMON NORMALS: patient oriented x3 and moves all extremities SENSORIUM/ORIENTATION: Yes alert Skin: COMMON NORMALS: no rashes or lesions noted GENERAL SKIN EXAM: no rashes or lesions noted Urinary Catheter Management^: Palacio: Cath Placed During This Visit: yes, but has since been removed by the nurse Reason for Continuing Indwelling Catheter: Decision to DC Catheter Urinary Catheter Date of Insertion: 07/07/21 Urinary Catheter Time of Insertion: 10:53 Date Urinary Catheter Removed: 07/06/21 Time Urinary Catheter Discontinued: 13:58 Data : 07/07/21 09:21 10/25/21 06:00 A&P Assessment and plan (1) Hip fracture, right: Status post ORIF on 07/05. Acute on chronic anemia, hemoglobin decreased further to 7.2 on recheck last night, was given PRBC transfusion with good response up to 8.6. Feels better today. Worked a little bit better with therapy. Follow-up hemoglobin with acute on chronic anemia. Pia chilel PT, OT. I-S Disposition planning. Given overall decreased strength and endurance consideration is given to rehabilitation at SNF prior to return home. Status: Acute Qualifiers: Encounter type: initial encounter Fracture type: closed Qualified Code(s): S72.001A - Fracture of unspecified part of neck of right femur, initial encounter for closed fracture (2) Paroxysmal A-fib: A. fib with RVR today, heart rate up as high as 180. Blood pressure maintained. Given 5 mg IV metoprolol x1 with improvement. Start p.o. metoprolol 12.5 mg twice daily. Monitor on telemetry. On Eliquis. Status: Acute (3) Graves' disease: Status: Acute (4) Iron malabsorption: Status: Acute (5) Rhabdomyolysis: Status: Acute Additional A&P Information Acute on chronic anemia, hemoglobin down to 7.2, transfused 1u on continue to monitor, ferritin, iron, Hemoccult stool requested, Protonix 40 twice daily Paroxysmal A. fib, telemetry monitoring, Eliquis restarted, continue metoprolol Graves' disease, continue methimazole Fall, prolonged immobility, Rhabdomyolysis, resolved. Received gentle IV hydration. Follow-up CK normalizing. Vitamin B12 deficiency, vitamin B12 Attestations Medical Necessity Statement*: Continue admission for postoperative management following right hip fracture and repair, complicated with acute on chronic anemia, A. fib with RVR. Disposition planning and arrangement. Coding Level of Care Code Acute Supervisor Cloth Winding for Alice Tyler Diagnoses Hip fracture, right S72.001A Encounter type: initial encounter Fracture type: closed Paroxysmal A-fib I48.0 Graves' disease E05.00 Iron malabsorption K90.9 Rhabdomyolysis M62.82
--- NOTE | 2021-07-07 18:42 | PC.NURSE ---
notified Dr Wooten that patient's HR is 136 and blood pressure is 110/68
[2021-07-07] MEDS: metoprolol tartrate 25 mg Tablet 12.5 MG PO (20:08)
--- NOTE | 2021-07-07 22:14 | PC.NURSE ---
CARDIAC RHYTHM When shift started pt was in A-fib with RVR and had just received dose of IV Metoprolol per day shift nurse. Pt did convert back to SR and remains now. Did also start po Metoprolol with meds tonight
[2021-07-08] VITALS (9 sets, daily range): BP systolic 116–159; BP diastolic 64–81; PULSE 67–89; RESP 16–18; TEMP 36.6–36.8; O2SAT 95–97
[2021-07-08 02:58] LABS: Basophils % 0.4 %; Eosinophils # 0.1 10^3/uL (0.0-0.8); Eosinophils % 2.5 %; Hematocrit 29.4 % (37.0-47.0); Hemoglobin 8.9 g/dL (11.5-15.3); Lymphocytes # 1.3 10^3/uL (0.8-4.8); Lymphocytes % 29.9 %; Mean Corpuscular HGB Conc 30.3 g/dL (30.0-36.0); Mean Corpuscular Hemoglobin 31.3 pg (28.0-34.0); Mean Corpuscular Volume 103.5 fl (81-99); Mean Platelet Volume 9.2 fL (7.4-10.4); Monocytes # 0.6 10^3/uL (0.2-0.9); Monocytes % 13.8 %; Neutrophils # 2.35 10^3/uL (1.8-7.7); Neutrophils % 52.5 %; Nucleated Red Blood Cells % 0 %; Platelet Count 191 10^3/cmm (130-400); Red Blood Count 2.84 10^6/uL (4.1-5.3); White Blood Count 4.5 10^3/uL (4.0-10.0)
--- NOTE | 2021-07-08 05:28 | PC.NURSE ---
SHIFT SUMMARY Has rested well. Medicated for pain with po Hydrocodone X1. Dressing to R hip intact. Has some old drainage marked. Good neurovascular checks of RLE. Telemetry has remained SR with occ PAC & PVC noted
[2021-07-08] MEDS: cyanocobalamin 1,000 mcg Tablet 500 MCG PO (08:00)
[2021-07-08] MEDS: sennosides-docusate Tablet 2 TAB PO ×2 (08:01→17:04)
[2021-07-08] MEDS: metoprolol tartrate 25 mg Tablet 12.5 MG PO ×2 (08:01→21:00)
[2021-07-08] MEDS: apixaban 5 mg Tablet PO ×2 (08:01→17:04)
[2021-07-08] MEDS: HYDROcodone-acetaminophen 5-325 mg Tablet 1 TAB PO ×2 (08:01→21:00)
[2021-07-08] MEDS: chlorhexidine gluconate 0.12% Btl 473 mL 30 ML MUCOUS MEM ×3 (10:21→21:01)
[2021-07-08] MEDS: mupirocin oint 22 gm 1 APPLIC NASAL ×2 (10:21→17:04)
--- NOTE | 2021-07-08 10:58 | PC.SOCIAL ---
IMM Updated Updated pt on Pg 2 IMM. No questions voiced. Provided pt a copy. Initialed, dated, & timed copy in chart.
--- NOTE | 2021-07-08 13:59 | P.PN_ITS ---
Subjective Subjective: Interval history: Pain okay with meds. Doing better with therapy. Vitals/I&O/Wt Last Vital Signs Temp 98.0 F 07/08/21 11:29 Pulse 72 07/08/21 11:29 Resp 18 07/08/21 11:29 BP 155/66 07/08/21 11:29 Pulse Ox 97 07/08/21 11:29 07/07/21 07/08/21 07/08/21 22:59 06:59 14:59 Intake Total 150 / 660 Output Total 125 / 125 400 / 525 Balance -125 / 385 -250 / 135 Physical Exam 2 Narrative: EXAM NARRATIVE: Right hip dressing clean and dry. Urinary Catheter Management^: Palacio: Cath Placed During This Visit: yes, but has since been removed by the nurse Reason for Continuing Indwelling Catheter: Acute Urinary Retention or Obstruction Urinary Catheter Date of Insertion: 07/07/21 Urinary Catheter Time of Insertion: 10:53 Date Urinary Catheter Removed: 07/06/21 Time Urinary Catheter Discontinued: 13:58 Data : 07/08/21 02:36 07/06/21 06:00 A&P Assessment and plan (1) Hip fracture, right: Status: Acute Qualifiers: Encounter type: initial encounter Fracture type: closed Qualified Code (s): S72.001A - Fracture of unspecified part of neck of right femur, initial encounter for closed fracture (2) Postoperative state: Home once sufficiently mobile with walker. Status: Acute Attestations Medical Necessity Statement*: Discharge home once sufficiently mobile with walker. Coding Level of Care Code Acute Licensing Registration Examiner for [facility] Diagnoses Hip fracture, right S72.001A Encounter type: initial encounter Fracture type: closed Postoperative state Z98.890
--- NOTE | 2021-07-08 14:00 | PC.NURSE ---
patient requesting to go to SNF now. Dr Guzman and LORIE Blake notified.
--- NOTE | 2021-07-08 21:53 | P.PN_ITS ---
Subjective Subjective: Interval history: Found still very weak when trying to get up/work with OT. Denies chest pain or pressure. No trouble breathing. Vitals/I&O/Wt Last Vital Signs Temp 98.0 F 07/08/21 20:00 Pulse 89 07/08/21 20:00 Resp 16 07/08/21 20:00 BP 157/73 07/08/21 20:00 Pulse Ox 95 07/08/21 20:00 07/08/21 07/08/21 07/08/21 06:59 14:59 22:59 Intake Total 150 / 660 120 / 120 Output Total 400 / 525 350 / 350 Balance -250 / 135 -350 / -350 120 / -230 Physical Exam Const: COMMON NORMALS: no acute distress, patient oriented x3 and alert GENERAL APPEARANCE: cooperative and comfortable ORIENTATION/CONSCIOUSNESS: Yes awake OTHER: Sitting up in bed. HENMT: COMMON NORMALS: oropharynx normal Neck/C-Spine: COMMON NORMALS: no JVD Resp: COMMON NORMALS: normal respiratory effort and clear to auscultation bilaterally AUSCULTATION: clear to auscultation bilaterally Cardio: COMMON NORMALS: no JVD, regular rhythm, S1 normal heart sound present, S2 normal heart sound present and No murmurs present (Cardio) RHYTHM: regular rhythm HEART SOUNDS: S1 normal heart sound present and S2 normal heart sound present GI: COMMON NORMALS: Normal to inspection, nondistended, normoactive bowel sounds present, Soft to palpation and non-tender PALPATION: Yes Soft to palpation Extremity: COMMON NORMALS: no joint enlargement and no pedal edema GENERAL: No cyanosis and No mottling OTHER: Bloody strikethrough, old blood. No active bleeding, no ecchymosis. Mild swelling. Distal LE appears perfused. Neuro: COMMON NORMALS: patient oriented x3 and moves all extremities SENSORIUM/ORIENTATION: Yes alert Skin: COMMON NORMALS: no rashes or lesions noted GENERAL SKIN EXAM: no rashes or lesions noted Urinary Catheter Management^: Palacio: Cath Placed During This Visit: yes, but has since been removed by the nurse Reason for Continuing Indwelling Catheter: Acute Urinary Retention or Obstruction Urinary Catheter Date of Insertion: 07/07/21 Urinary Catheter Time of Insertion: 10:53 Date Urinary Catheter Removed: 07/06/21 Time Urinary Catheter Discontinued: 13:58 Data : 07/08/21 02:36 07/06/21 06:00 A&P Assessment and plan (1) Hip fracture, right: Very weak, severely deconditioned. Unable to currently return home. Continue mobilization with therapy, arrangements for SNF placement. Reassess hemoglobin level. Status post ORIF on 07/05. Acute on chronic anemia Palacio removed PT, OT. I-S Disposition planning. Status: Acute Qualifiers: Encounter type: initial encounter Fracture type: closed Qualified Code(s): S72.001A - Fracture of unspecified part of neck of right femur, initial encounter for closed fracture (2) Paroxysmal A-fib: Last night had to be given additional dose of 5 mg IV metoprolol. Heart rates currently remain better. Continue oral metoprolol. Monitor on telemetry. On Eliquis. Status: Acute (3) Graves' disease: Status: Acute (4) Iron malabsorption: Status: Acute (5) Rhabdomyolysis: Status: Acute Additional A&P Information Acute on chronic anemia, hemoglobin down to 7.2, transfused 1u on 07/07. Continue to monitor, ferritin, iron, Hemoccult stool requested, Protonix 40 twice daily Paroxysmal A. fib, telemetry monitoring, Eliquis restarted, continue metoprolol Graves' disease, continue methimazole Fall, prolonged immobility, Rhabdomyolysis, resolved. Received gentle IV hydration. Follow-up CK normalizing. Vitamin B12 deficiency, vitamin B12 Attestations Medical Necessity Statement*: Continue admission for continued mobilization due to severe deconditioning following hip fracture and repair, optimization of atrial fibrillation with RVR control, follow-up of acute on chronic anemia. Disposition planning and arrangements. Coding Level of Care Code Acute Contact Manager for Alice Tyler Diagnoses Hip fracture, right S72.001A Encounter type: initial encounter Fracture type: closed Paroxysmal A-fib I48.0 Graves' disease E05.00 Iron malabsorption K90.9 Rhabdomyolysis M62.82
[2021-07-09] VITALS: BP 147/66; PULSE 84; RESP 18; TEMP 36.4; O2SAT 94
[2021-07-09 03:26] LABS: Basophils % 0.5 %; Eosinophils # 0.1 10^3/uL (0.0-0.8); Eosinophils % 1.9 %; Hemoglobin 8.2 g/dL (11.5-15.3); Lymphocytes # 1.3 10^3/uL (0.8-4.8); Lymphocytes % 30.5 %; Mean Corpuscular HGB Conc 31.5 g/dL (30.0-36.0); Mean Corpuscular Hemoglobin 31.7 pg (28.0-34.0); Mean Corpuscular Volume 100.4 fl (81-99); Mean Platelet Volume 9.1 fL (7.4-10.4); Monocytes # 0.5 10^3/uL (0.2-0.9); Monocytes % 11.5 %; Neutrophils # 2.29 10^3/uL (1.8-7.7); Neutrophils % 54.6 %; Nucleated Red Blood Cells % 0 %; Platelet Count 212 10^3/cmm (130-400); Red Blood Count 2.59 10^6/uL (4.1-5.3); Red Cell Distribution Width 17.4 % (12.1-15.1); White Blood Count 4.2 10^3/uL (4.0-10.0)
[2021-07-09 04:00] VITALS: BP 157/79; PULSE 84; RESP 16; TEMP 36.7; O2SAT 93
[2021-07-09 06:00] VITALS: PULSE 82
[2021-07-09 08:00] VITALS: BP 132/77; PULSE 96; RESP 18; TEMP 36.7; O2SAT 95
[2021-07-09] MEDS: apixaban 5 mg Tablet PO (08:48)
[2021-07-09] MEDS: sennosides-docusate Tablet 2 TAB PO (08:48)
[2021-07-09] MEDS: cyanocobalamin 1,000 mcg Tablet 500 MCG PO (08:49)
[2021-07-09] MEDS: metoprolol tartrate 25 mg Tablet 12.5 MG PO (08:49)
[2021-07-09] MEDS: chlorhexidine gluconate 0.12% Btl 473 mL 30 ML MUCOUS MEM ×2 (08:50→15:25)
[2021-07-09] MEDS: acetaminophen 500 mg Tablet 1000 MG PO (08:54)
[2021-07-09] MEDS: mupirocin oint 22 gm 1 APPLIC NASAL (09:10)
[2021-07-09 11:29] LABS: SARS Covid-2 Antigen Negative (Negative)
--- NOTE | 2021-07-09 11:35 | PM.DCS ---
Discharge Providers Date of Admission: 07/03/21 16:52 Date of Discharge: July 09, 2021 Attending Provider at Admission: Robbin Walls MD Attending Provider at Discharge: Terrence Wooten Primary Care Provider: Amrit Ivey MD Diagnoses at Discharge Discharge Diagnosis (1) Hip fracture, right: Status: Acute Qualifiers: Encounter type: initial encounter Fracture type: closed Qualified Code(s): S72.001A - Fracture of unspecified part of neck of right femur, initial encounter for closed fracture (2) Paroxysmal A-fib: Status: Acute (3) Graves' disease: Status: Acute (4) Iron malabsorption: Status: Acute (5) Rhabdomyolysis: Status: Acute Reason for Visit Reason for Visit: POSSIBLE R HIP FX Hospital Course Hospital Course Pleasant 80-year-old lady was admitted for cyst management of right hip basicervical femoral neck fracture after a fall and prolonged immobility. Apixaban was held. She underwent ORIF on 07/05. With noted acute on chronic anemia hemoglobin decreasing, coming to as low as 7.2 at which point was transfused 1 unit PRBC. Subsequently hemoglobin remains stable with resumption of Eliquis. Noted to have B12 deficiency in addition to iron deficiency, started on replacement. She is otherwise been quite weak and deconditioned. Due to this she will be going to SNF for rehabilitation prior to returning home. In hospital had to be given IV metoprolol due to episodes of paroxysmal A. fib with RVR after the surgery, possibly due to not having received her home metoprolol. Rhabdomyolysis noted on presentation resolved. Physical Exam Const: COMMON NORMALS: no acute distress, patient oriented x3 and alert GENERAL APPEARANCE: cooperative and comfortable ORIENTATION/CONSCIOUSNESS: Yes awake OTHER: Sitting up in bed. HENMT: COMMON NORMALS: oropharynx normal Neck/C-Spine: COMMON NORMALS: no JVD Resp: COMMON NORMALS: normal respiratory effort and clear to auscultation bilaterally AUSCULTATION: clear to auscultation bilaterally Cardio: COMMON NORMALS: no JVD, regular rhythm, S1 normal heart sound present, S2 normal heart sound present and No murmurs present (Cardio) RHYTHM: regular rhythm HEART SOUNDS: S1 normal heart sound present and S2 normal heart sound present GI: COMMON NORMALS: Normal to inspection, nondistended, normoactive bowel sounds present, Soft to palpation and non-tender PALPATION: Yes Soft to palpation Extremity: COMMON NORMALS: no joint enlargement and no pedal edema GENERAL: No cyanosis and No mottling OTHER: Bloody strikethrough, old blood. No active bleeding. 5x5cm bruise inferiorly. Mild thigh swelling. Distal LE appears perfused. Neuro: COMMON NORMALS: patient oriented x3 and moves all extremities SENSORIUM/ORIENTATION: Yes alert Skin: COMMON NORMALS: no rashes or lesions noted GENERAL SKIN EXAM: no rashes or lesions noted Urinary Catheter Management^: Palacio: Cath Placed During This Visit: yes, but has since been removed by the nurse Reason for Continuing Indwelling Catheter: Acute Urinary Retention or Obstruction Urinary Catheter Date of Insertion: 07/07/21 Urinary Catheter Time of Insertion: 10:53 Date Urinary Catheter Removed: 07/06/21 Time Urinary Catheter Discontinued: 13:58 Discharge Data Data Completed and Pending: Completed Studies During Hospitalization Category Date Time Status CT cervical spin wo con* [id number] Urge nt Cat Scan 07/03/21 16:[address] head wo con* [id number] Urgent Cat Scan 07/03/21 16:38 Completed XR hip RT 1V wo/[place] [id number] Routine Exams 07/05/21 Completed XR hip RT 2-3V wo /w pel* [id number] Stat Exams 07/03/21 14:54 Completed Pending at discharge Category Date Time Status Immunochemical Fe al OCB Routine Lab 07/05/21 13:09 Uncollected Labs from last 24 hours 07/09/21 07/09/21 07/05/21 10:25 02:53 04:45 WBC 4.2 RBC 2.59 L Hgb 8.2 L Hct 26.0 L MCV 100.4 H MCH 31.7 MCHC 31.5 RDW 17.4 H Plt Count 212 MPV 9.1 Neut % (Auto) 54.6 Lymph % (Auto) 30.5 [place] % (Auto) 11.5 Eos % (Auto) 1.9 Baso % (Auto) 0.5 Neut # (Auto) 2.29 Lymph # (Auto) 1.3 [place] # (Auto) 0.5 Eos # (Auto) 0.1 Baso # (Auto) 0.0 Nucleated RBC % (a uto) 0 Nucleated RBCs # 0.0 SARS-CoV-2 Ag (Rap id) Negative Crossmatch See Detail Vitals: Last Vital Signs Temp 98.1 F 07/09/21 08:00 Pulse 96 07/09/21 08:00 Resp 18 07/09/21 08:00 BP 132/77 07/09/21 08:00 Pulse Ox 95 07/09/21 08:00 Discharge Plan Discharge Patient Disposition: Xfer SNF Condition: Stable Prescriptions: New hydrocodone-acetaminophen 5-325 mg Tablet 1 tab PO Q4H PRN (Reason: Moderate Pain) 7 Days Qty: 30 RF: 0 cyanocobalamin (vitamin B-12) [Vitamin B-12] 1,000 mcg Tablet 500 mcg PO DAILY Qty: 15 RF: 0 sennosides-docusate sodium [Stool Softener-Laxative] 8.6-50 mg Tablet 2 tab PO DAILY Qty: 30 RF: 0 Continued acetaminophen [Tylenol Extra Strength] 500 mg tablet 1,000 mg PO BID PRN (Reason: fever or pain) RF: 0 methimazole 5 mg tablet 2.5 mg PO DAILY RF: 0 PreserVision AREDS [id number] capsule 1 cap PO BID RF: 0 Eliquis 5 mg tablet 5 mg PO BID Qty: 60 RF: 11 metoprolol succinate 25 mg capsule,sprinkle,ER 24hr 12.5 mg PO DAILY RF: 0 Discharge Orders: Discharge Order (Routine); Ordered 07/09/21 Ordered By: Terrence Wooten Other Ambulatory Orders: DME: Walker (Order) Location: None Selected Ordered By: Anton Guzman Referrals: [facility] [place] Home Care ([facility]) [Outside] Amrit Ivey MD [Primary Care Provider] - 4-7 days Anton Guzman MD [Physician] - 2 weeks Discharge Diet: Advance as tolerated Discharge Activity: Limit activity as instructed and As per PT/OT instructions Patient Instructions: Opioid Safety Activity Restrictions/Additional Instructions: Okay to shower. Replace dressing as needed for drainage. Weight-bear as tolerated with walker. Please follow-up blood count in 3-4 days due to acute on chronic anemia. Please follow-up regarding chronic iron deficiency anemia, B12 deficiency noted in the hospital. Discharge Attestations Time Spent in Discharge Care*: greater than 30 min Quality Metrics Clinical Quality Measures During this hospital stay, did patient experience: None Coding Level of Care Code Acute [facility] note Diagnoses Hip fracture, right S72.001A Encounter type: initial encounter Fracture type: closed Paroxysmal A-fib I48.0 Graves' disease E05.00 Iron malabsorption K90.9 Rhabdomyolysis M62.82
[2021-07-09 12:00] VITALS: BP 132/71; PULSE 86; RESP 17; TEMP 37.1; O2SAT 95
--- NOTE | 2021-07-09 13:43 | PC.NURSE ---
Report called to [facility] at this time. Orders faxed prior to calling report. Transportation is noted to be here for patient at 1500.
[2021-07-09 15:35] VITALS: BP 132/71; PULSE 86; RESP 17; TEMP 37.1; O2SAT 95
== END 2021-07-09 15:36 | disposition skilled nursing facility (03) | DRG 481 ==
LOC: ER 17:19 → MEDSURG 17:57
PROVIDERS: Emergency Medicine; Orthopaedic Surgery; Admitting Provider Family Medicine; Emergency Provider Physician Assistant; PCP Internal Medicine; Visit Provider Internal Medicine
PROC: 0QS604Z Reposition Right Upper Femur with Internal Fixation Device, Open Approach (ICD-10-PCS; principal; 2021-07-05 15:00)
DX: S72.091A Other fracture of head and neck of right femur, initial encounter for closed fracture (principal); K90.9 Intestinal malabsorption, unspecified; M62.82 Rhabdomyolysis; W01.0XXA Fall on same level from slipping, tripping and stumbling without subsequent striking against object, initial encounter; E05.00 Thyrotoxicosis with diffuse goiter without thyrotoxic crisis or storm; I48.0 Paroxysmal atrial fibrillation; E53.8 Deficiency of other specified B group vitamins; Z66 Do not resuscitate; D50.9 Iron deficiency anemia, unspecified; Z79.01 Long term (current) use of anticoagulants
CPT/HCPCS: 36415; 36430; 51702; 70450; 72125; 73501; 73502; 76000; 80048; 80053; 80500; 81001; 82550; 82607; 82728; 82746; 83540; 83735; 83880; 84443; 84484; 85018; 85025; 85045; 85610; 86850; 86900; 86920; 87426; 93005; 94664; 96372; 96374; 96375; 96376; 97161; 97165; 97530; 97535; 99285; C1713; J0690; J1100; J1170; J1644; J2270; J2405; J2704; J3010; J3475; J3490; J7030; P9016

== ENCOUNTER → 2021-08-25 09:31 | Outpatient (BNVA) | payer MEDICARE, OTHER, SELFPAY | PROVIDERS: PCP Internal Medicine; Visit Provider Orthopaedic Surgery | DX: Z98.890 Other specified postprocedural states (principal); S72.001D Fracture of unspecified part of neck of right femur, subsequent encounter for closed fracture with routine healing; X58.XXXD Exposure to other specified factors, subsequent encounter | CPT/HCPCS: 73502 ==

== ENCOUNTER → 2021-10-06 09:54 | Outpatient (BNVA) | payer MEDICARE, OTHER, SELFPAY | PROVIDERS: PCP Internal Medicine; Visit Provider Orthopaedic Surgery | DX: Z98.890 Other specified postprocedural states (principal); S72.141D Displaced intertrochanteric fracture of right femur, subsequent encounter for closed fracture with routine healing; X58.XXXD Exposure to other specified factors, subsequent encounter | CPT/HCPCS: 73502 ==

== ENCOUNTER → 2021-10-08 15:46 | Outpatient (BNVA) | payer MEDICARE, OTHER, SELFPAY | PROVIDERS: PCP Internal Medicine; Visit Provider Internal Medicine | DX: K90.9 Intestinal malabsorption, unspecified (principal); E05.00 Thyrotoxicosis with diffuse goiter without thyrotoxic crisis or storm; I48.0 Paroxysmal atrial fibrillation | CPT/HCPCS: 80053; 83550; 84443 ==

== ENCOUNTER → 2022-04-07 10:19 | Outpatient (BNVA) | payer MEDICARE, OTHER, SELFPAY | PROVIDERS: PCP Internal Medicine; Visit Provider Internal Medicine | DX: K90.9 Intestinal malabsorption, unspecified (principal); E05.00 Thyrotoxicosis with diffuse goiter without thyrotoxic crisis or storm; I48.0 Paroxysmal atrial fibrillation | CPT/HCPCS: 80053; 83550; 84443; 85025 ==

== ENCOUNTER → 2022-05-12 13:42 | Outpatient (BNVA) | payer MEDICARE, OTHER, SELFPAY | PROVIDERS: PCP Internal Medicine; Visit Provider Internal Medicine Cardiovascular Disease | DX: I48.0 Paroxysmal atrial fibrillation (principal); Z79.01 Long term (current) use of anticoagulants | CPT/HCPCS: 99213 ==

== ENCOUNTER → 2022-11-12 10:35 | Outpatient (BNVA) | payer MEDICARE, OTHER, SELFPAY | PROVIDERS: PCP Internal Medicine; Visit Provider Nurse Practitioner Family | DX: I48.0 Paroxysmal atrial fibrillation (principal); Z87.891 Personal history of nicotine dependence; Z79.01 Long term (current) use of anticoagulants | CPT/HCPCS: 99213 ==

== ENCOUNTER → 2023-06-14 09:35 | Outpatient (BNVA) | payer MEDICARE, OTHER, SELFPAY | PROVIDERS: PCP Internal Medicine; Visit Provider Nurse Practitioner Family | DX: L82.1 Other seborrheic keratosis (principal); L81.4 Other melanin hyperpigmentation; L57.8 Other skin changes due to chronic exposure to nonionizing radiation; D22.5 Melanocytic nevi of trunk; L85.3 Xerosis cutis; B35.1 Tinea unguium; Z08 Encounter for follow-up examination after completed treatment for malignant neoplasm; Z85.828 Personal history of other malignant neoplasm of skin; L57.0 Actinic keratosis | CPT/HCPCS: 17000; 99214 ==

== ENCOUNTER → 2023-06-17 09:44 | Outpatient (BNVA) | payer MEDICARE, OTHER, SELFPAY | PROVIDERS: PCP Internal Medicine; Visit Provider Internal Medicine Cardiovascular Disease | DX: I48.0 Paroxysmal atrial fibrillation (principal); Z87.891 Personal history of nicotine dependence; Z79.01 Long term (current) use of anticoagulants | CPT/HCPCS: 99213 ==

== ENCOUNTER 2023-09-22 10:00 | Oncology outpatient (recurring) (ONCR) | payer MEDICARE, OTHER, SELFPAY ==
[2023-09-15 09:29] VITALS: BP 152/72; PULSE 71; RESP 16; TEMP 36.3; O2SAT 98
[2023-09-15] MEDS: ferric carboxy (IVPB) 750 MG in sodium chloride 0.9% (100 ml) 100 ML 345 MG IV (10:05)
[2023-09-15 10:35] VITALS: BP 121/78; PULSE 78; RESP 18; TEMP 36.6; O2SAT 99
[2023-09-22 10:15] VITALS: BP 121/65; PULSE 60; RESP 16; TEMP 35.9; O2SAT 99
[2023-09-22] MEDS: ferric carboxy (IVPB) 750 MG in sodium chloride 0.9% (100 ml) 100 ML 345 MG IV ×2 (10:19→10:34)
[2023-09-22 11:07] VITALS: BP 145/80; PULSE 67; RESP 16; TEMP 35.9; O2SAT 97
== END 2023-10-12 23:59 | disposition home or self-care (01) ==
PROVIDERS: PCP Internal Medicine; Visit Provider Internal Medicine
DX: K90.9 Intestinal malabsorption, unspecified (principal); Z53.9 Procedure and treatment not carried out, unspecified reason
CPT/HCPCS: 96365; J1439

== ENCOUNTER → 2023-12-14 11:00 | Outpatient (BNVA) | payer MEDICARE, OTHER, SELFPAY | PROVIDERS: PCP Internal Medicine; Visit Provider Nurse Practitioner Family | DX: L82.1 Other seborrheic keratosis (principal); L81.4 Other melanin hyperpigmentation; L57.8 Other skin changes due to chronic exposure to nonionizing radiation; D22.61 Melanocytic nevi of right upper limb, including shoulder; L85.3 Xerosis cutis; Z85.828 Personal history of other malignant neoplasm of skin; B35.3 Tinea pedis; L82.0 Inflamed seborrheic keratosis; L57.0 Actinic keratosis | CPT/HCPCS: 17000; 17110; 99214 ==

== ENCOUNTER → 2023-12-23 09:04 | Outpatient (BNVA) | payer MEDICARE, OTHER, SELFPAY | PROVIDERS: PCP Internal Medicine; Visit Provider Nurse Practitioner Family | DX: I48.0 Paroxysmal atrial fibrillation (principal); Z79.01 Long term (current) use of anticoagulants | CPT/HCPCS: 99213 ==

== ENCOUNTER → 2024-06-14 13:42 | Outpatient (BNVA) | payer MEDICARE, OTHER, SELFPAY | PROVIDERS: PCP Internal Medicine; Visit Provider Nurse Practitioner Family | DX: M79.671 Pain in right foot (principal); B35.1 Tinea unguium; L57.0 Actinic keratosis; D22.5 Melanocytic nevi of trunk; L81.4 Other melanin hyperpigmentation; L57.8 Other skin changes due to chronic exposure to nonionizing radiation; Z85.828 Personal history of other malignant neoplasm of skin | CPT/HCPCS: 17000; 99213 ==

== ENCOUNTER → 2024-06-21 11:00 | Outpatient (BNVA) | payer MEDICARE, OTHER, SELFPAY | PROVIDERS: PCP Internal Medicine; Visit Provider Internal Medicine Cardiovascular Disease | DX: R07.9 Chest pain, unspecified (principal) | CPT/HCPCS: 93005; 99214 ==

== ENCOUNTER → 2024-07-24 09:35 | Outpatient (BNVA) | payer MEDICARE, OTHER, SELFPAY | PROVIDERS: PCP Internal Medicine; Visit Provider Podiatrist Foot & Ankle Surgery | DX: M77.41 Metatarsalgia, right foot; M77.42 Metatarsalgia, left foot; B35.1 Tinea unguium; M20.11 Hallux valgus (acquired), right foot; M20.12 Hallux valgus (acquired), left foot | CPT/HCPCS: 11721; 99203 ==

== ENCOUNTER 2024-08-21 13:40 | Outpatient (CLI) | payer MEDICARE, OTHER, SELFPAY | END 2024-08-21 13:41 | disposition home or self-care (01) | LOC: SPT 13:41 | PROVIDERS: PCP Internal Medicine; Visit Provider Podiatrist Foot & Ankle Surgery | DX: Z46.89 Encounter for fitting and adjustment of other specified devices (principal); M20.10 Hallux valgus (acquired), unspecified foot; M77.41 Metatarsalgia, right foot; M77.42 Metatarsalgia, left foot | CPT/HCPCS: 97760; L3030 ==

== ENCOUNTER 2024-08-24 12:46 | Outpatient (CLI) | payer MEDICARE, OTHER, SELFPAY ==
[2024-08-24 13:08] LABS: Basophils % 0.3 %; Eosinophils # 0.1 10^3/uL (0.0-0.8); Eosinophils % 0.8 %; Hematocrit 35.4 % (36-47); Lymphocytes % 33.6 %; Mean Corpuscular HGB Conc 31.6 g/dL (30-55); Mean Corpuscular Volume 98.1 fl (85-98); Mean Platelet Volume 8.7 fL (7.4-10.4); Monocytes # 0.5 10^3/uL (0.2-0.9); Monocytes % 7.9 %; Neutrophils # 3.37 10^3/uL (1.8-7.7); Neutrophils % 57.1 %; Nucleated Red Blood Cells % 0 %; Platelet Count 258 10^3/cmm (157-399); Red Blood Count 3.61 10^6/uL (3.85-5.65); Red Cell Distribution Width 14.4 % (12.1-15.1); White Blood Count 5.92 10^3/uL (3.29-11.43)
== END 2024-08-24 12:47 | disposition home or self-care (01) ==
LOC: LAB 12:48
PROVIDERS: PCP Internal Medicine; Visit Provider Internal Medicine
DX: E05.00 Thyrotoxicosis with diffuse goiter without thyrotoxic crisis or storm (principal)
CPT/HCPCS: 36415; 85025

== ENCOUNTER 2024-10-11 11:00 | Oncology outpatient (recurring) (ONCR) | payer MEDICARE, OTHER, SELFPAY ==
[2024-10-04] MEDS: iron sucrose 200 MG in sodium chloride 0.9% 50 ML 240 MG IV (09:53)
[2024-10-04 10:24] VITALS: BP 80/50; PULSE 74; RESP 16; TEMP 36.4; O2SAT 99
[2024-10-11 11:09] VITALS: BP 124/75; PULSE 66; RESP 18; TEMP 36.8; O2SAT 97
[2024-10-11] MEDS: iron sucrose 200 MG in sodium chloride 0.9% 50 ML 240 MG IV (11:21)
[2024-10-11 11:45] VITALS: BP 110/68; PULSE 67; RESP 18; TEMP 36.6; O2SAT 98
== END 2024-10-12 23:59 | disposition home or self-care (01) ==
PROVIDERS: PCP Internal Medicine; Visit Provider Internal Medicine
DX: E83.10 Disorder of iron metabolism, unspecified (principal); K90.9 Intestinal malabsorption, unspecified; Z79.899 Other long term (current) drug therapy; Z53.9 Procedure and treatment not carried out, unspecified reason
CPT/HCPCS: 96365; J1756

== ENCOUNTER → 2024-12-13 14:29 | Outpatient (BNVA) | payer MEDICARE, OTHER, SELFPAY | PROVIDERS: PCP Internal Medicine; Visit Provider Nurse Practitioner Family | DX: D22.5 Melanocytic nevi of trunk (principal); L81.4 Other melanin hyperpigmentation; L57.8 Other skin changes due to chronic exposure to nonionizing radiation; L72.11 Pilar cyst; L82.1 Other seborrheic keratosis; Z08 Encounter for follow-up examination after completed treatment for malignant neoplasm; Z85.828 Personal history of other malignant neoplasm of skin; L82.0 Inflamed seborrheic keratosis; L53.8 Other specified erythematous conditions; L29.89 Other pruritus; Z78.9 Other specified health status; D48.5 Neoplasm of uncertain behavior of skin | CPT/HCPCS: 11102; 17110; 99213 ==

== ENCOUNTER → 2025-01-15 11:15 | Outpatient (BNVA) | payer MEDICARE, OTHER, SELFPAY | PROVIDERS: PCP Internal Medicine; Visit Provider Internal Medicine Cardiovascular Disease | DX: I48.0 Paroxysmal atrial fibrillation (principal); Z79.01 Long term (current) use of anticoagulants; E05.00 Thyrotoxicosis with diffuse goiter without thyrotoxic crisis or storm; M41.9 Scoliosis, unspecified; Z87.891 Personal history of nicotine dependence | CPT/HCPCS: 99214 ==

== ENCOUNTER 2025-01-25 10:26 | Oncology outpatient (recurring) (ONCR) | payer MEDICARE, OTHER, SELFPAY ==
[2025-01-11] MEDS: iron sucrose 200 MG in sodium chloride 0.9% (100 ml) 100 ML IV (10:48)
[2025-01-11 11:29] VITALS: BP 124/65; PULSE 60; RESP 17; TEMP 37.1; O2SAT 97
[2025-01-18 11:06] VITALS: BP 150/71; PULSE 66; RESP 16; TEMP 36.9; O2SAT 94
[2025-01-18] MEDS: iron sucrose 200 MG in sodium chloride 0.9% (100 ml) 100 ML 220 MG IV (11:21)
[2025-01-25 10:37] VITALS: BP 139/66; PULSE 64; RESP 16; TEMP 36.7; O2SAT 97
[2025-01-25] MEDS: iron sucrose 200 MG in sodium chloride 0.9% (100 ml) 100 ML 220 MG IV (10:58)
[2025-01-25 11:41] VITALS: BP 127/62
== END 2025-02-09 23:59 | disposition home or self-care (01) ==
PROVIDERS: PCP Internal Medicine; Visit Provider Internal Medicine
DX: E83.10 Disorder of iron metabolism, unspecified (principal); Z79.899 Other long term (current) drug therapy
CPT/HCPCS: 96365; J1756

== ENCOUNTER → 2025-03-12 11:34 | Outpatient (BNVA) | payer MEDICARE, OTHER, SELFPAY | PROVIDERS: PCP Internal Medicine; Visit Provider Podiatrist Foot & Ankle Surgery | DX: M77.41 Metatarsalgia, right foot (principal); M77.42 Metatarsalgia, left foot; B35.1 Tinea unguium; M20.11 Hallux valgus (acquired), right foot; M20.12 Hallux valgus (acquired), left foot | CPT/HCPCS: 99213 ==

== ENCOUNTER → 2025-07-01 14:06 | Outpatient (BNVA) | payer MEDICARE, OTHER, SELFPAY | PROVIDERS: PCP Internal Medicine; Visit Provider Nurse Practitioner Family | DX: L57.8 Other skin changes due to chronic exposure to nonionizing radiation (principal); Z08 Encounter for follow-up examination after completed treatment for malignant neoplasm; Z85.828 Personal history of other malignant neoplasm of skin; D48.5 Neoplasm of uncertain behavior of skin | CPT/HCPCS: 11104; 99213 ==

== ENCOUNTER 2025-07-29 12:35 | Oncology outpatient (recurring) (ONCR) | payer MEDICARE, OTHER, SELFPAY ==
[2025-07-22 12:51] VITALS: BP 145/81; PULSE 59; TEMP 36.2
[2025-07-22] MEDS: ferric carboxy (PYXIS) 750 MG in sodium chloride 0.9% (100 ml) 100 ML 345 MG IV (13:01)
[2025-07-29 12:44] VITALS: BP 126/76; PULSE 66; TEMP 36.3
[2025-07-29] MEDS: ferric carboxy (PYXIS) 750 MG in sodium chloride 0.9% (100 ml) 100 ML 345 MG IV (12:46)
== END 2025-08-11 23:59 | disposition home or self-care (01) ==
PROVIDERS: PCP Internal Medicine; Visit Provider Internal Medicine
DX: E83.10 Disorder of iron metabolism, unspecified; Z79.899 Other long term (current) drug therapy; Z53.9 Procedure and treatment not carried out, unspecified reason
CPT/HCPCS: 96365; J1439

== ENCOUNTER 2025-08-12 06:00 | Oncology outpatient (recurring) (ONCR) | payer MEDICARE, OTHER, SELFPAY | END 2025-09-11 23:59 | disposition home or self-care (01) | LOC: ONCMED 08-16 07:30 | PROVIDERS: PCP Internal Medicine; Visit Provider Internal Medicine | DX: I48.0 Paroxysmal atrial fibrillation (principal); E05.00 Thyrotoxicosis with diffuse goiter without thyrotoxic crisis or storm; Z79.01 Long term (current) use of anticoagulants; Z87.891 Personal history of nicotine dependence; D64.9 Anemia, unspecified | CPT/HCPCS: 99213 ==

== ENCOUNTER → 2025-08-20 11:04 | Outpatient (BNVA) | payer MEDICARE, OTHER, SELFPAY | PROVIDERS: PCP Internal Medicine; Visit Provider Podiatrist Foot & Ankle Surgery | DX: I73.9 Peripheral vascular disease, unspecified (principal); B35.1 Tinea unguium | CPT/HCPCS: 11721 ==